=== PATIENT | female | born 1975 | race Caucasian/White ===

== ENCOUNTER 2016-12-21 02:51 | Outpatient (CLI) | payer OTHER ==
[2016-12-21 03:47] LABS: APPEARANCE,URINE CLEAR; BILIRUBIN,URINE NEGATIVE (NEGATIVE); GLUCOSE, URINE NEGATIVE (NEGATIVE); KETONES,URINE NEGATIVE (NEGATIVE); LEUKOCYTE ESTERASE,URINE NEGATIVE (NEGATIVE); NITRITE,URINE NEGATIVE (NEGATIVE); PROTEIN,URINE NEGATIVE (NEGATIVE); URINE SPECIFIC GRAVITY 1.011; UROBILINOGEN,URINE NEGATIVE mg/dL (<2.0)
[2016-12-21 04:00] LABS: URINE BARBITURATES SCREEN NEGATIVE; URINE METHADONE SCREEN NEGATIVE; URINE OPIATES LOW NEGATIVE; URINE PHENCYCLIDINE SCREEN NEGATIVE
== END 2016-12-21 04:17 | disposition home or self-care (01) ==
LOC: LC 02:51
PROVIDERS: ATTEND Obstetrics & Gynecology
DX: Z34.90 Encounter for supervision of normal pregnancy, unspecified, unspecified trimester (principal)
CPT/HCPCS: 80307; 81001

== ENCOUNTER 2017-01-02 20:29 | Inpatient (IN) | payer OTHER ==
[2017-01-02 21:07] LABS: APPEARANCE,URINE SLIGHTLY-CLOUDY; BILIRUBIN,URINE NEGATIVE (NEGATIVE); GLUCOSE, URINE NEGATIVE (NEGATIVE); KETONES,URINE TRACE mg/dL (NEGATIVE); LEUKOCYTE ESTERASE,URINE NEGATIVE (NEGATIVE); NITRITE,URINE NEGATIVE (NEGATIVE); PROTEIN,URINE NEGATIVE (NEGATIVE); URINE SPECIFIC GRAVITY 1.011; UROBILINOGEN,URINE NEGATIVE mg/dL (<2.0)
[2017-01-02 21:22] LABS: URINE BARBITURATES SCREEN NEGATIVE; URINE METHADONE SCREEN NEGATIVE; URINE OPIATES LOW NEGATIVE; URINE PHENCYCLIDINE SCREEN NEGATIVE
[2017-01-02] MEDS ORDERED: DICYCLOMINE HCL 20 MG TABLET PO ONE (21:31)
[2017-01-02] MEDS ORDERED: RINGERS SOLUTION,LACTATED 1,000 ML IV PRN (21:31)
[2017-01-02] MEDS ORDERED: PROMETHAZINE HCL INJ 25 MG/1 ML VIAL IV ONE (21:31)
[2017-01-02] MEDS ORDERED: PROMETHAZINE HCL INJ 25 MG/1 ML VIAL ONE (21:40)
[2017-01-02 21:52] LABS: ABSOLUTE BASOPHILS # (AUTO) 0.1 10^3/uL (0.0-0.2); ABSOLUTE EOSINOPHILS # (AUTO) 0.1 10^3/uL (0.0-0.6); ABSOLUTE LYMPHOCYTES (AUTO) 1.4 10^3/uL (0.5-4.7); BASOPHILS % (AUTO) 0.7 % (0-2); EOSINOPHILS % (AUTO) 0.8 % (0-6); HEMATOCRIT 35.2 % (36.0-47.0); HEMOGLOBIN 12.2 g/dL (12.0-15.5); HGB HCT DIFFERENCE 1.4; LYMPHOCYTES % (AUTO) 12.3 % (13-45); MEAN CORPUSCULAR HEMOGLOBIN 30.3 pg (27.0-33.4); MEAN CORPUSCULAR HGB CONC 34.5 g/dL (32.0-36.0); MEAN CORPUSCULAR VOLUME 88 fl (80-97); MONOCYTES % (AUTO) 8.4 % (3-13); RED BLOOD COUNT 4.01 10^6/uL (3.72-5.28); RED CELL DISTRIBUTION WIDTH 13.3 % (11.5-14.0); SEGMENTED NEUTROPHILS % (AUTO) 77.8 % (42-78); WHITE BLOOD COUNT 11.6 10^3/uL (4.0-10.5)
[2017-01-02] MEDS ORDERED: DICYCLOMINE HCL 20 MG TABLET ONE (21:55)
[2017-01-02 22:07] LABS: ALANINE AMINOTRANSFERASE 30 U/L (9-52); ALBUMIN 3.7 g/dL (3.5-5.0); ALKALINE PHOSPHATASE 96 U/L (38-126); AMYLASE 67 U/L (30-110); ANION GAP 11 (5-19); ASPARTATE AMINO TRANSFERASE 17 U/L (14-36); BILIRUBIN,DIRECT 0.3 mg/dL (0.0-0.4); BILIRUBIN,TOTAL 0.4 mg/dL (0.2-1.3); BLOOD UREA NITROGEN 9 mg/dL (7-20); CALCIUM 9.8 mg/dL (8.4-10.2); CARBON DIOXIDE 22 mmol/L (22-30); CHLORIDE 104 mmol/L (98-107); CREATININE RESULT 0.61 mg/dL (0.52-1.25); GLUCOSE 95 mg/dL (75-110); LIPASE 114.9 U/L (23-300); POTASSIUM 4.2 mmol/L (3.6-5.0); SODIUM 136.5 mmol/L (137-145); TOTAL PROTEIN 6.7 g/dL (6.3-8.2)
--- NOTE | 2017-01-02 22:50 | RADIOLOGY REPORT (SQ) ---
EXAM DESCRIPTION: U/S ABDOMEN LIMITED W/O DOP COMPLETED DATE/TIME: 01/02/2017 10:31 pm REASON FOR STUDY: RUQ ultrasound for RUQ pain to look at gallbladder COMPARISON: None. TECHNIQUE: Dynamic and static grayscale images acquired of the abdomen and recorded on PACS. Kristelo miguel selected color Doppler and spectral images recorded. LIMITATIONS: None. FINDINGS: PANCREAS: No masses. Visualized pancreatic duct normal caliber. LIVER: No masses. Echotexture normal. LIVER VASCULATURE: Normal directional flow of the main portal vein and hepatic veins. GALLBLADDER: No stones. Normal wall thickness. No pericholecystic fluid. ULTRASOUND-DETECTED SCRUGGS'S SIGN: Negative. INTRAHEPATIC DUCTS AND COMMON DUCT: CBD and intrahepatic ducts normal caliber. No filling defects. INFERIOR VENA CAVA: Normal flow. AORTA: No aneurysm. RIGHT KIDNEY: Normal size. Normal echogenicity. No solid or suspicious masses. No hydronephrosis. No calcifications. PERITONEAL AND RIGHT PLEURAL SPACE: No ascites or effusions. OTHER: No other significant findings. IMPRESSION: NORMAL RIGHT UPPER QUADRANT ULTRASOUND. TECHNICAL DOCUMENTATION: JOB ID: [id number] All Rights Reserved
[2017-01-02] MEDS ORDERED: FENTANYL CITRATE INJ/PF 100 MCG/2 ML AMPUL ONE (23:24)
[2017-01-02] MEDS ORDERED: ONDANSETRON HCL INJ/PF 4 MG/2 ML SDV ONE (23:25)
[2017-01-02] MEDS ORDERED: FENTANYL CITRATE INJ/PF 100 MCG/2 ML AMPUL IV ONE (23:30)
[2017-01-02] MEDS ORDERED: DEXTROSE 40% GEL 15 GM TUBE PO PRN ×2 (23:55)
[2017-01-02] MEDS ORDERED: GLUCAGON,HUMAN RECOMB 1 MG INJ SUBCUT PRN (23:55)
[2017-01-02] MEDS ORDERED: DEXTROSE 50%-WATER 25 GM/50 ML DISP.SYRIN IV PRN ×2 (23:55)
[2017-01-03] MEDS ORDERED: ONDANSETRON HCL INJ/PF 4 MG/2 ML SDV IV PRN (00:10)
[2017-01-03] MEDS ORDERED: CEFAZOLIN 2 GM/D5W RTU 2 GM/50 ML RTUPB IV ONE ×2 (00:15→00:50)
[2017-01-03] MEDS ORDERED: ZOLPIDEM TARTRATE 5 MG TABLET PO ONE (00:15)
[2017-01-03] MEDS ORDERED: ZOLPIDEM TARTRATE 5 MG TABLET ONE (00:50)
[2017-01-03] MEDS ORDERED: FENTANYL CITRATE INJ/PF 100 MCG/2 ML AMPUL IV ONE ×2 (01:04→06:15)
[2017-01-03] MEDS ORDERED: FENTANYL CITRATE INJ/PF 100 MCG/2 ML AMPUL ONE ×2 (01:09→06:07)
--- NOTE | 2017-01-03 01:13 | CONSULTATION REPORT E ---
Consultation Report NAME: JANET CORTEZ : 1975 AGE: 41Y DATE: 01/02/2017 LR200 A TO: RAHEEM MANTILLA M.D. FROM: JUAINTA DOSS M.D. Requesting Physician REASON FOR CONSULTATION: Patient with right upper quadrant pains radiating to the back. HISTORY OF PRESENT ILLNESS: This is a 41-year-old female, 29 weeks , complaining of right upper quadrant pains radiating to the back after somewhat fatty meal this evening. Pains started about 3 hours ago and have been persistent and severe. She had an ultrasound of the gallbladder which showed no stones and no evidence of cholecystitis. Her LFTs and amylase and lipase are all normal. No fever. She did have episodes of vomiting x3. She said she had the same episode about 2 weeks ago after a fatty meal, and the pains subsided after about an hour, as soon as she got into the hospital. She just had fentanyl, and the pains have decreased from a #5 to a #3. PAST HISTORY: She did have 3 pregnancies, 3 sections. SOCIAL HISTORY: Denies smoking or drinking or recreational drug use. REVIEW OF SYSTEMS: No ear or nasal problems. No shortness of breath or chest pains. GI as in HPI. : No dysuria. No history of seizures. No joint pains. No easy bruisability or gland enlargement. Rest of the systems are negative. FAMILY HISTORY: Noncontributory. PHYSICAL EXAMINATION: GENERAL: Well-developed, well-nourished, 41-year-old female, alert and oriented, complaining of right upper quadrant pains. VITAL SIGNS: Blood pressure 140 systolic. No fever. HEENT: Neck is supple. No thyromegaly. LUNGS: Clear. HEART: Regular sinus rhythm. ABDOMEN: Normal; 29-week uterine . Tender in the right upper quadrant with no rebound. No definite Carias sign, though patient just had fentanyl. EXTREMITIES: No edema. DIAGNOSTIC DATA: Ultrasound showed normal gallbladder, no stones, and no evidence of cholecystitis. White count is elevated to 11.6. All the rest of her LFTs, CMP, lipase, and amylase are all normal. IMPRESSION: 1. Biliary colic. 2. Possible starting cholecystitis, acalculous. 3. uterine 29 weeks. RECOMMENDATION: 1. Continue with the parenteral pain medication p.r.n. basis. 2. Start on IV Ancef 2 grams q. 8 hours. 3. Repeat CBC, CMP, lipase in a.m. 4. Keep n.p.o. and continue with hydration with the IV fluids. 5. Will reevaluate the patient in the a.m. DICTATING PHYSICIAN: RAHEEM MANTILLA M.D. [id number] PHY#: [id number] ID: [id number] JOB#: [id number] ACCT: [id number] cc:RAHEEM MANTILLA M.D. >
[2017-01-03] MEDS ORDERED: HYDROCODONE/ACETAMINOPHEN 5-325 MG TABLET ONE (03:48)
[2017-01-03] MEDS ORDERED: HYDROCODONE/ACETAMINOPHEN 5-325 MG TABLET PO ONE ×2 (04:00→05:00)
[2017-01-03] MEDS ORDERED: CEFAZOLIN 2 GM/D5W RTU 2 GM/50 ML RTUPB IV SCH (06:00)
[2017-01-03] MEDS ORDERED: PROMETHAZINE HCL INJ 25 MG/1 ML VIAL IV ONE (06:15)
[2017-01-03] MEDS: CEFAZOLIN 2 GM/D5W RTU 2 GM/50 ML RTUPB IV SCH ×2 (09:23→17:15)
[2017-01-03 10:06] LABS: ABSOLUTE BASOPHILS # (AUTO) 0.1 10^3/uL (0.0-0.2); ABSOLUTE LYMPHOCYTES (AUTO) 1.5 10^3/uL (0.5-4.7); ABSOLUTE MONOCYTES (AUTO) 0.9 10^3/uL (0.1-1.4); ABSOLUTE NEUT (AUTO) 10.3 10^3/uL (1.7-8.2); EOSINOPHILS % (AUTO) 0.2 % (0-6); HEMATOCRIT 33.2 % (36.0-47.0); HEMOGLOBIN 11.4 g/dL (12.0-15.5); LYMPHOCYTES % (AUTO) 11.6 % (13-45); MEAN CORPUSCULAR HEMOGLOBIN 30.1 pg (27.0-33.4); MEAN CORPUSCULAR HGB CONC 34.3 g/dL (32.0-36.0); MEAN CORPUSCULAR VOLUME 88 fl (80-97); MONOCYTES % (AUTO) 6.8 % (3-13); RED BLOOD COUNT 3.79 10^6/uL (3.72-5.28); RED CELL DISTRIBUTION WIDTH 13.2 % (11.5-14.0); SEGMENTED NEUTROPHILS % (AUTO) 80.4 % (42-78); WHITE BLOOD COUNT 12.8 10^3/uL (4.0-10.5)
[2017-01-03] MEDS: DICYCLOMINE HCL 20 MG TABLET PO PRN ×2 (10:08→15:59)
[2017-01-03 10:28] LABS: ALANINE AMINOTRANSFERASE 25 U/L (9-52); ALBUMIN 3.3 g/dL (3.5-5.0); ALKALINE PHOSPHATASE 84 U/L (38-126); AMYLASE 41 U/L (30-110); ANION GAP 10 (5-19); ASPARTATE AMINO TRANSFERASE 14 U/L (14-36); BILIRUBIN,DIRECT 0.3 mg/dL (0.0-0.4); BILIRUBIN,TOTAL 0.4 mg/dL (0.2-1.3); BLOOD UREA NITROGEN 5 mg/dL (7-20); CARBON DIOXIDE 21 mmol/L (22-30); CHLORIDE 105 mmol/L (98-107); CREATININE RESULT 0.59 mg/dL (0.52-1.25); GLUCOSE 94 mg/dL (75-110); LIPASE 66.3 U/L (23-300); POTASSIUM 4.1 mmol/L (3.6-5.0); SODIUM 136.1 mmol/L (137-145); TOTAL PROTEIN 5.9 g/dL (6.3-8.2)
[2017-01-03] MEDS: DEXTROSE 5%-LACTATED RINGERS 1,000 ML IV PRN (12:24)
[2017-01-03] MEDS: FENTANYL CITRATE INJ/PF 100 MCG/2 ML AMPUL IV PRN ×3 (13:10→21:58)
[2017-01-03] MEDS ORDERED: CALCIUM CARBONATE 500 MG TAB.CHEW PO PRN (22:24)
[2017-01-03] MEDS ORDERED: FAMOTIDINE 20 MG TABLET PO ONE (22:30)
[2017-01-04] MEDS: CEFAZOLIN 2 GM/D5W RTU 2 GM/50 ML RTUPB IV SCH ×3 (00:53→16:25)
[2017-01-04] MEDS: FENTANYL CITRATE INJ/PF 100 MCG/2 ML AMPUL IV PRN ×2 (03:50→08:21)
[2017-01-04 06:42] LABS: ABSOLUTE BASOPHILS # (AUTO) 0.1 10^3/uL (0.0-0.2); ABSOLUTE EOSINOPHILS # (AUTO) 0.1 10^3/uL (0.0-0.6); ABSOLUTE LYMPHOCYTES (AUTO) 1.4 10^3/uL (0.5-4.7); ABSOLUTE NEUT (AUTO) 8.3 10^3/uL (1.7-8.2); BASOPHILS % (AUTO) 0.5 % (0-2); EOSINOPHILS % (AUTO) 1.1 % (0-6); HEMATOCRIT 32.5 % (36.0-47.0); HEMOGLOBIN 11.3 g/dL (12.0-15.5); HGB HCT DIFFERENCE 1.4; LYMPHOCYTES % (AUTO) 12.8 % (13-45); MEAN CORPUSCULAR HEMOGLOBIN 30.6 pg (27.0-33.4); MEAN CORPUSCULAR HGB CONC 34.6 g/dL (32.0-36.0); MEAN CORPUSCULAR VOLUME 88 fl (80-97); RED BLOOD COUNT 3.68 10^6/uL (3.72-5.28); RED CELL DISTRIBUTION WIDTH 13.7 % (11.5-14.0); SEGMENTED NEUTROPHILS % (AUTO) 76.6 % (42-78); WHITE BLOOD COUNT 10.9 10^3/uL (4.0-10.5)
[2017-01-04] MEDS: DEXTROSE 5%-LACTATED RINGERS 1,000 ML IV PRN (06:48)
[2017-01-04] MEDS: DICYCLOMINE HCL 20 MG TABLET PO PRN ×2 (06:49→11:05)
[2017-01-04 07:01] LABS: ALANINE AMINOTRANSFERASE 22 U/L (9-52); ALBUMIN 3.2 g/dL (3.5-5.0); ALKALINE PHOSPHATASE 80 U/L (38-126); ANION GAP 9 (5-19); ASPARTATE AMINO TRANSFERASE 18 U/L (14-36); BILIRUBIN,DIRECT 0.3 mg/dL (0.0-0.4); BILIRUBIN,TOTAL 0.5 mg/dL (0.2-1.3); BLOOD UREA NITROGEN 4 mg/dL (7-20); CARBON DIOXIDE 24 mmol/L (22-30); CHLORIDE 105 mmol/L (98-107); CREATININE RESULT 0.65 mg/dL (0.52-1.25); GLUCOSE 96 mg/dL (75-110); LIPASE 84.5 U/L (23-300); POTASSIUM 4.2 mmol/L (3.6-5.0); SODIUM 137.7 mmol/L (137-145); TOTAL PROTEIN 5.9 g/dL (6.3-8.2)
--- NOTE | 2017-01-04 12:40 | PDOC PROGRESS REPORT ---
Subjective Subjective:: Patient states she is feeling better and her abdominal pain is less localized , less in the right upper quadrant. He did tolerate clear liquids. She denies nausea. Physical Exam Vital Signs: Temp Pulse Resp BP Pulse Ox 98 F 91 18 120/67 98 01/04/17 08:30 01/04/17 08:30 01/04/17 08:30 01/04/17 08:30 01/04/17 08:30 Intake & Output 01/03/17 01/04/17 01/05/17 06:59 06:59 06:59 Intake Total 300 Balance 300 Weight 112.7 kg General appearance: PRESENT: no acute distress GI/Abdominal exam: PRESENT: tenderness - Only mild abdominal tenderness peritoneal signs no rigidity. Results Laboratory Results: 01/04/17 06:25 01/04/17 06:25 01/04/17 01/04/17 06:25 06:25 WBC 10.9 H RBC 3.68 L Hgb 11.3 L Hct 32.5 L MCV 88 MCH 30.6 MCHC 34.6 RDW 13.7 Plt Count 225 Seg Neutrophils % 76.6 Lymphocytes % 12.8 L Monocytes % 9.0 Eosinophils % 1.1 Basophils % 0.5 Absolute Neutrophils 8.3 H Absolute Lymphocytes 1.4 Absolute Monocytes 1.0 Absolute Eosinophils 0.1 Absolute Basophils 0.1 Sodium 137.7 Potassium 4.2 Chloride 105 Carbon Dioxide 24 Anion Gap 9 BUN 4 L Creatinine 0.65 Est GFR ( Amer) > 60 Est GFR (Non-Af Amer) > 60 Glucose 96 Calcium 9.0 Total Bilirubin 0.5 AST 18 ALT 22 Alkaline Phosphatase 80 Total Protein 5.9 L Albumin 3.2 L Lipase 84.5 Impressions: Abdomen Ultrasound 01/02/17 21:30 IMPRESSION: NORMAL RIGHT UPPER QUADRANT ULTRASOUND. Assessment & Plan - Diagnosis (1) Abdominal pain of unknown etiology Is this a current diagnosis for this admission?: Yes Plan: Since abdominal pain clinically improved. She is tolerating a diet. Her laboratory profile shows normalization. Clinically the patient does not have evidence of an acute intra-abdominal process. We will sign off at this time. Please reconsult surgery if clinical condition deteriorates.
--- NOTE | 2017-01-04 14:04 | PROGRESS NOTE E ---
Progress Note NAME: JANET CORTEZ : 1975 AGE: 41Y DATE: 01/03/2017 ROOM: 228 SUBJECTIVE: The patient is still complaining of right upper quadrant pain but not as bad as last night. I saw her early this morning and her pain is about 2.5 to 3. Denies any nausea or vomiting. She finally asked for pain medication at 4 o'clock today. She said the pains are still 3 with a pain medication of fentanyl, but this was only given about half an hour ago. OBJECTIVE: VITAL SIGNS: Temperature 98.6, heart rate is 62 per minute, blood pressure 141/66. ABDOMEN: Soft and shredder tender peat in the right upper quadrant and towards the right side. BACK: Her back pain seems to have subsided and there is no more tenderness. LABORATORY DATA: Showed white count was 12.8 from 11.6 last night. Her LFTs remain normal. Her lipase and amylase remain normal. PLAN: I agreed to start her on clear liquids for now. Continue with antibiotic therapy for possible starting acalculous cholecystitis. Will follow her in the morning and repeat her blood work with CBC and CMP and lipase. DICTATING PHYSICIAN: RAEHEM MANTILLA M.D. [id number] PHY#: [id number] ID: [id number] JOB#: [id number] ACCT: [id number] cc: >
--- NOTE | 2017-01-04 19:23 | PDOC PROGRESS REPORT ---
Subjective Progress Note for:: 01/04/17 Subjective:: pt's pain has improved, tolerating regular diet, now no IV pain meds in approx 12 hours Physical Exam - Physical Exam Vital Signs: Temp Pulse Resp BP Pulse Ox 98.3 F 78 18 139/66 H 100 01/04/17 15:20 01/04/17 15:20 01/04/17 15:20 01/04/17 15:20 01/04/17 15:20 Intake & Output 01/03/17 01/04/17 01/05/17 06:59 06:59 06:59 Intake Total 300 Balance 300 Weight 112.7 kg General appearance: PRESENT: no acute distress, well-developed, well-nourished Head exam: PRESENT: atraumatic, normocephalic Respiratory exam: PRESENT: clear to auscultation bao, symmetrical, unlabored Cardiovascular exam: PRESENT: RRR. ABSENT: diastolic murmur, rubs, systolic murmur Pulses: PRESENT: normal dorsalis pedis pul, +2 pedal pulses bilateral GI/Abdominal exam: PRESENT: normal bowel sounds, soft. ABSENT: distended, guarding, mass, organolmegaly, rebound, tenderness Rectal exam: PRESENT: deferred Extremities exam: ABSENT: calf tenderness, clubbing, joint swelling, tenderness , +1 edema Musculoskeletal exam: PRESENT: ambulatory Neurological exam: PRESENT: alert, awake, oriented to person, oriented to place , oriented to time, oriented to situation, CN II-XII grossly intact. ABSENT: motor sensory deficit Psychiatric exam: PRESENT: appropriate affect, normal mood. ABSENT: homicidal ideation, suicidal ideation Skin exam: PRESENT: dry, intact, warm. ABSENT: cyanosis, rash Result Laboratory Results: 01/04/17 06:25 01/04/17 06:25 01/04/17 01/04/17 06:25 06:25 WBC 10.9 H RBC 3.68 L Hgb 11.3 L Hct 32.5 L MCV 88 MCH 30.6 MCHC 34.6 RDW 13.7 Plt Count 225 Seg Neutrophils % 76.6 Lymphocytes % 12.8 L Monocytes % 9.0 Eosinophils % 1.1 Basophils % 0.5 Absolute Neutrophils 8.3 H Absolute Lymphocytes 1.4 Absolute Monocytes 1.0 Absolute Eosinophils 0.1 Absolute Basophils 0.1 Sodium 137.7 Potassium 4.2 Chloride 105 Carbon Dioxide 24 Anion Gap 9 BUN 4 L Creatinine 0.65 Est GFR ( Amer) > 60 Est GFR (Non-Af Amer) > 60 Glucose 96 Calcium 9.0 Total Bilirubin 0.5 AST 18 ALT 22 Alkaline Phosphatase 80 Total Protein 5.9 L Albumin 3.2 L Lipase 84.5 Impressions: Abdomen Ultrasound 01/02/17 21:30 IMPRESSION: NORMAL RIGHT UPPER QUADRANT ULTRASOUND. Status: Imported from PACS Assessment & Plan - Diagnosis (1) Qualifiers: Weeks of gestation: 29 weeks Qualified Code(s): Z3A.29 - 29 weeks gestation of Is this a current diagnosis for this admission?: Yes Plan: f/u in [facility] this week. COntinue PNV. Colace and bowel regimen reviewed. (2) Biliary colic symptom Is this a current diagnosis for this admission?: Yes Plan: Pt assesed earlier in am and due to need for pain meds requirement was changed to inpatient today and continued to monitor during day for pain meds requirement and toleration of po intake. Monitored throughout the day and symptoms improved and patient doing well. Ancef 2 g Q8 recommended by Dr. Parada. Pt has now completed 24 hrs and has improved pain. Full diet today tolerated well. No IV pain meds since 0800 and no po pain meds requested. Doing well. Dr. Burgos signed off. Now since not needing pain meds and tolerated po intake meets criteria for discharge. - Time Time Spent with patient: Less than 15 minutes Critical Time spent with patient: Less than 15 minutes Medications reviewed and adjusted accordingly: Yes Anticipated discharge: Home Within: within 24 hours - Inpatient Certification Based on my medical assessment, after consideration of the patient's comorbidities, presenting symptoms, or acuity I expect that the services needed warrant INPATIENT care.: No I certify that my determination is in accordance with my understanding of Medicare's requirements for reasonable and necessary INPATIENT services [42 CFR 412.3e].: No - Plan Summary Plan Summary: Discharge to home
--- NOTE | 2017-01-04 19:32 | PDOC DISCHARGE SUMMARY ---
General - Admit/Disc Date/PCP Admission Date/Primary Care Provider: 01/04/17 13:54 RAINE MANZANO, Discharge Date: 01/04/17 - Discharge Diagnosis (1) Is this a current diagnosis for this admission?: Yes Summary: 29wks and doing well. F/u in the office this week. (2) Biliary colic symptom Is this a current diagnosis for this admission?: Yes Summary: Symptoms improved. Will continue Bentyl as started by Dr. Webb Doing well. DIscharge to home. GI signed off. - Additional Information Resuscitation Status: Full Code Home Medications: Prenat Vit Comb.10/Iron/FA/Dha [Pnv-Ob with Dha Combo Pack] 1 each PO DAILY Calcium Carbonate [Tums Chewable 500 mg Tab.chew] 500 mg PO Q4HP PRN tab.chew 01/04/17 Dicyclomine HCl [Bentyl 20 mg Tablet] 20 mg PO QIDP PRN 30 Days #120 tablet History of Present Illness Patient complains of: RUQ pain. History of Present Illness: JANET CORTEZ is a 41 year old female admitted on Sat evening for observation due to RUQ pain. Admitted for r/o cholelithiasis. RUQ US done and normal. GI consulted and rec IV abx and NPO. Pt improved over 24 hours and po diet started and IV pain meds discontinued. pt symptoms imrpved and pt met criteria for discharge. Hospital Course Hospital Course: 41 year old female admitted on Sat evening for observation due to RUQ pain. Admitted for r/o cholelithiasis. RUQ US done and normal. GI consulted and rec IV abx and NPO. Pt improved over 24 hours and po diet started and IV pain meds discontinued. pt symptoms imrpved and pt met criteria for discharge Physical Exam - Physical Exam Vital Signs: Temp Pulse Resp BP Pulse Ox 98.3 F 78 18 139/66 H 100 01/04/17 15:20 01/04/17 15:20 01/04/17 15:20 01/04/17 15:20 01/04/17 15:20 Intake & Output 01/03/17 01/04/17 01/05/17 06:59 06:59 06:59 Intake Total 300 Balance 300 Weight 112.7 kg General appearance: PRESENT: no acute distress, well-developed, well-nourished Head exam: PRESENT: atraumatic, normocephalic Cardiovascular exam: PRESENT: RRR. ABSENT: diastolic murmur, rubs, systolic murmur Pulses: PRESENT: normal dorsalis pedis pul, +2 pedal pulses bilateral Vascular exam: PRESENT: normal capillary refill GI/Abdominal exam: PRESENT: normal bowel sounds, soft. ABSENT: distended, guarding, mass, organolmegaly, rebound, tenderness Rectal exam: PRESENT: deferred Extremities exam: PRESENT: full ROM. ABSENT: calf tenderness, clubbing, pedal edema Neurological exam: PRESENT: alert, awake, oriented to person, oriented to place , oriented to time, oriented to situation, CN II-XII grossly intact. ABSENT: motor sensory deficit Skin exam: PRESENT: dry, intact, warm. ABSENT: cyanosis, rash Result Laboratory Results: 01/04/17 06:25 01/04/17 06:25 01/04/17 01/04/17 06:25 06:25 WBC 10.9 H RBC 3.68 L Hgb 11.3 L Hct 32.5 L MCV 88 MCH 30.6 MCHC 34.6 RDW 13.7 Plt Count 225 Seg Neutrophils % 76.6 Lymphocytes % 12.8 L Monocytes % 9.0 Eosinophils % 1.1 Basophils % 0.5 Absolute Neutrophils 8.3 H Absolute Lymphocytes 1.4 Absolute Monocytes 1.0 Absolute Eosinophils 0.1 Absolute Basophils 0.1 Sodium 137.7 Potassium 4.2 Chloride 105 Carbon Dioxide 24 Anion Gap 9 BUN 4 L Creatinine 0.65 Est GFR ( Amer) > 60 Est GFR (Non-Af Amer) > 60 Glucose 96 Calcium 9.0 Total Bilirubin 0.5 AST 18 ALT 22 Alkaline Phosphatase 80 Total Protein 5.9 L Albumin 3.2 L Lipase 84.5 Impressions: Abdomen Ultrasound 01/02/17 21:30 IMPRESSION: NORMAL RIGHT UPPER QUADRANT ULTRASOUND. Status: Imported from PACS Plan Discharge Plan: discharge to home Time Spent: Less than 30 Minutes
[2017-01-04 19:35] VITALS: BP 139/66
== END 2017-01-04 19:54 | disposition home or self-care (01) | DRG 781 ==
LOC: LC 20:29 → LR 23:25 → 2S 01-03 01:11 → OBSVTOIN 01-04 13:54
PROVIDERS: ADMIT Specialist; ATTEND Specialist
DX: O26.613 Liver and biliary tract disorders in pregnancy, third trimester (principal); K83.8 Other specified diseases of biliary tract; R10.11 Right upper quadrant pain; Z3A.29 29 weeks gestation of pregnancy; O09.523 Supervision of elderly multigravida, third trimester
CPT/HCPCS: 36415; 76705; 80053; 80307; 81001; 82150; 83690; 85025; 94760; G0378; G0379; J0690; J2405; J2550; J3010; J3490

== ENCOUNTER 2017-01-05 05:54 | Outpatient (CLI) | payer OTHER ==
[2017-01-05 06:51] LABS: APPEARANCE,URINE SLIGHTLY-CLOUDY; BILIRUBIN,URINE NEGATIVE (NEGATIVE); GLUCOSE, URINE NEGATIVE (NEGATIVE); KETONES,URINE 80 mg/dL (NEGATIVE); LEUKOCYTE ESTERASE,URINE NEGATIVE (NEGATIVE); NITRITE,URINE NEGATIVE (NEGATIVE); PROTEIN,URINE NEGATIVE (NEGATIVE); URINE SPECIFIC GRAVITY 1.014; UROBILINOGEN,URINE NEGATIVE mg/dL (<2.0)
[2017-01-05 06:56] LABS: URINE BARBITURATES SCREEN NEGATIVE; URINE METHADONE SCREEN NEGATIVE; URINE OPIATES LOW NEGATIVE; URINE PHENCYCLIDINE SCREEN NEGATIVE
[2017-01-05 07:54] LABS: ABSOLUTE BASOPHILS # (AUTO) 0.1 10^3/uL (0.0-0.2); ABSOLUTE EOSINOPHILS # (AUTO) 0.3 10^3/uL (0.0-0.6); ABSOLUTE LYMPHOCYTES (AUTO) 1.4 10^3/uL (0.5-4.7); ABSOLUTE MONOCYTES (AUTO) 1.2 10^3/uL (0.1-1.4); ABSOLUTE NEUT (AUTO) 9.5 10^3/uL (1.7-8.2); BASOPHILS % (AUTO) 0.6 % (0-2); EOSINOPHILS % (AUTO) 2.3 % (0-6); HEMOGLOBIN 11.4 g/dL (12.0-15.5); HGB HCT DIFFERENCE 1.2; LYMPHOCYTES % (AUTO) 10.9 % (13-45); MEAN CORPUSCULAR HEMOGLOBIN 30.4 pg (27.0-33.4); MEAN CORPUSCULAR HGB CONC 34.6 g/dL (32.0-36.0); MEAN CORPUSCULAR VOLUME 88 fl (80-97); MONOCYTES % (AUTO) 9.8 % (3-13); RED BLOOD COUNT 3.76 10^6/uL (3.72-5.28); RED CELL DISTRIBUTION WIDTH 13.2 % (11.5-14.0); SEGMENTED NEUTROPHILS % (AUTO) 76.4 % (42-78); WHITE BLOOD COUNT 12.4 10^3/uL (4.0-10.5)
[2017-01-05 08:05] LABS: ALANINE AMINOTRANSFERASE 26 U/L (9-52); ALBUMIN 3.3 g/dL (3.5-5.0); ALKALINE PHOSPHATASE 90 U/L (38-126); AMYLASE 31 U/L (30-110); ANION GAP 11 (5-19); ASPARTATE AMINO TRANSFERASE 29 U/L (14-36); BILIRUBIN,DIRECT 0.4 mg/dL (0.0-0.4); BILIRUBIN,TOTAL 0.7 mg/dL (0.2-1.3); BLOOD UREA NITROGEN 5 mg/dL (7-20); CALCIUM 9.2 mg/dL (8.4-10.2); CARBON DIOXIDE 20 mmol/L (22-30); CHLORIDE 106 mmol/L (98-107); CREATININE RESULT 0.54 mg/dL (0.52-1.25); GLUCOSE 74 mg/dL (75-110); LIPASE 51.1 U/L (23-300); POTASSIUM 3.9 mmol/L (3.6-5.0); TOTAL PROTEIN 6.2 g/dL (6.3-8.2)
--- NOTE | 2017-01-05 08:30 | RADIOLOGY REPORT (SQ) ---
EXAM DESCRIPTION: U/S OB LIMITED COMPLETED DATE/TIME: 01/05/2017 8:21 am REASON FOR STUDY: contractions at 30 weeks;cervical length COMPARISON: None. TECHNIQUE: Limited transvaginal and transabdominal grayscale ultrasound for evaluation of specific r equested obstetrical parameters. LIMITATIONS: None. FINDINGS: CERVICAL LENGTH: 5.4 cm. Closed. Somewhat heterogenous appearance of the cervix. HAIM: 15.4 cm. FHR: 132 beats per minute. PRESENTATION: Cephalic. PLACENTA: Anterior. OTHER: No other significant findings. IMPRESSION: LIMITED OBSTETRICAL ULTRASOUND WITH MEASURED PARAMETERS DELINEATED ABOVE. Trimester of : Third trimester - 28 weeks to delivery. TECHNICAL DOCUMENTATION: JOB ID: [id number] [employer]- All Rights Reserved
[2017-01-05] MEDS ORDERED: FLUCONAZOLE 100 MG TABLET ONE ×2 (09:34→09:36)
== END 2017-01-05 09:40 | disposition home or self-care (01) ==
LOC: LC 05:54
PROVIDERS: ATTEND Student in an Organized Health Care Education/Training Program
PROC: 4A1HXCZ Monitoring of Products of Conception, Cardiac Rate, External Approach (ICD-10-PCS; principal; 2017-01-05)
DX: O26.893 Other specified pregnancy related conditions, third trimester (principal); R10.2 Pelvic and perineal pain; Z3A.30 30 weeks gestation of pregnancy
CPT/HCPCS: 36415; 76815; 80053; 80307; 81001; 82150; 82731; 83690; 85025; 87086

== ENCOUNTER 2017-01-06 11:01 | Inpatient (IN) | payer OTHER ==
--- NOTE | 2017-01-06 11:17 | ER Document Report ---
ED Medical Screen (RME) - General Chief Complaint: Abdominal Pain Stated Complaint: ABDOMINAL PAIN Time Seen by Provider: 01/06/17 11:15 Notes: Patient is referred from [facility] office. Patient has persistent right upper quadrant pain. This is patient's third visit for this pain. She is currently 30 weeks . [facility] provider has suggested that an MRI be obtained to rule out intra-abdominal pathology. TRAVEL OUTSIDE OF THE [place] IN LAST 30 DAYS: No - Related Data Allergies/Adverse Reactions: Penicillins Allergy (Severe, Verified 01/06/17 11:06) Hives hydromorphone HCl [From Dilaudid] Adverse Reaction (Mild, Verified 01/06/17 11: 06) nausea, sweaty and low 02 sats Opioids - Morphine Analogues Adverse Reaction (Mild, Verified 01/06/17 11:06) nausea, cold sweats, low 02 sats Past Medical History - Social History Chew tobacco use (# tins/day): No Frequency of alcohol use: None Drug Abuse: None - Past Medical History Cardiac Medical History: Pulmonary Medical History: Neurological Medical History: Reports: Hx Migraine Renal/ Medical History: Denies: Hx Kidney Stones, Hx Ovarian Cysts, Hx Peritoneal Dialysis, Hx Pelvic Inflammatory Disease Malignancy Medical History: Denies: Hx Breast Cancer, Hx Cervical Cancer, Hx Ovarian Cancer GI Medical History: Denies: Hx Gastroesophageal Reflux Disease, Hx Hiatal Hernia , Hx Ulcer Musculoskeltal Medical History: Infectious Medical History: Denies: Hx HIV Past Surgical History: Reports: Hx Section - x2 - Immunizations Hx Diphtheria, Pertussis, Tetanus Vaccination: Yes Physical Exam - Vital signs Vitals: Temp Pulse Resp BP Pulse Ox 98.5 F 99 20 118/73 98 01/06/17 11:05 01/06/17 11:05 01/06/17 11:05 01/06/17 11:05 01/06/17 11:05 Course - Vital Signs Vital signs: Temp Pulse Resp BP Pulse Ox 98.5 F 99 20 118/73 98 01/06/17 11:05 01/06/17 11:05 01/06/17 11:05 01/06/17 11:05 01/06/17 11:05
[2017-01-06 11:52] LABS: ABSOLUTE EOSINOPHILS # (AUTO) 0.3 10^3/uL (0.0-0.6); ABSOLUTE MONOCYTES (AUTO) 0.9 10^3/uL (0.1-1.4); ABSOLUTE NEUT (AUTO) 8.2 10^3/uL (1.7-8.2); BASOPHILS % (AUTO) 0.3 % (0-2); EOSINOPHILS % (AUTO) 3.3 % (0-6); HEMATOCRIT 35.4 % (36.0-47.0); HEMOGLOBIN 12.2 g/dL (12.0-15.5); HGB HCT DIFFERENCE 1.2; LYMPHOCYTES % (AUTO) 9.4 % (13-45); MEAN CORPUSCULAR HEMOGLOBIN 30.4 pg (27.0-33.4); MEAN CORPUSCULAR HGB CONC 34.4 g/dL (32.0-36.0); MEAN CORPUSCULAR VOLUME 88 fl (80-97); RED BLOOD COUNT 4.01 10^6/uL (3.72-5.28); RED CELL DISTRIBUTION WIDTH 13.5 % (11.5-14.0); WHITE BLOOD COUNT 10.6 10^3/uL (4.0-10.5)
[2017-01-06 12:02] LABS: APPEARANCE,URINE SLIGHTLY-CLOUDY; BILIRUBIN,URINE NEGATIVE (NEGATIVE); GLUCOSE, URINE NEGATIVE (NEGATIVE); KETONES,URINE TRACE mg/dL (NEGATIVE); LEUKOCYTE ESTERASE,URINE NEGATIVE (NEGATIVE); NITRITE,URINE NEGATIVE (NEGATIVE); PROTEIN,URINE NEGATIVE (NEGATIVE); URINE SPECIFIC GRAVITY 1.026
[2017-01-06] MEDS ORDERED: NORMAL SALINE 1000 ML 1,000 ML IV ONE (12:03)
[2017-01-06 12:19] LABS: ALANINE AMINOTRANSFERASE 33 U/L (9-52); ALBUMIN 3.8 g/dL (3.5-5.0); ALKALINE PHOSPHATASE 104 U/L (38-126); ANION GAP 11 (5-19); ASPARTATE AMINO TRANSFERASE 26 U/L (14-36); BILIRUBIN,DIRECT 0.3 mg/dL (0.0-0.4); BILIRUBIN,TOTAL 0.6 mg/dL (0.2-1.3); BLOOD UREA NITROGEN 8 mg/dL (7-20); CALCIUM 9.4 mg/dL (8.4-10.2); CARBON DIOXIDE 25 mmol/L (22-30); CHLORIDE 103 mmol/L (98-107); CREATININE RESULT 0.64 mg/dL (0.52-1.25); GLUCOSE 71 mg/dL (75-110); SODIUM 138.6 mmol/L (137-145); TOTAL PROTEIN 6.9 g/dL (6.3-8.2)
--- NOTE | 2017-01-06 13:00 | ER Document Report ---
ED General - General Chief Complaint: Abdominal Pain Stated Complaint: ABDOMINAL PAIN Time Seen by Provider: 01/06/17 11:15 Mode of Arrival: Ambulatory Information source: Patient Notes: 41-year-old female 30 weeks presents with approximately 1 month duration of abdominal pain. Patient denies any fevers or chills admits to nausea vomiting patient has been seen multiple times for similar complaints but was sent home. [facility] called requesting patient have further imaging TRAVEL OUTSIDE OF THE [place] IN LAST 30 DAYS: No - HPI Onset: Other Onset/Duration: Persistent Quality of pain: Achy Severity: Mild Pain Level: 1 Associated symptoms: Nausea, Vomiting, Other Exacerbated by: Food Relieved by: Denies Similar symptoms previously: Yes Recently seen / treated by doctor: Yes - Related Data Allergies/Adverse Reactions: Penicillins Allergy (Severe, Verified 01/06/17 11:27) Hives hydromorphone HCl [From Dilaudid] Adverse Reaction (Mild, Verified 01/06/17 11: 27) nausea, sweaty and low 02 sats Opioids - Morphine Analogues Adverse Reaction (Mild, Verified 01/06/17 11:27) nausea, cold sweats, low 02 sats Home Medications: Current Home Medications Dicyclomine HCl [Bentyl 20 mg Tablet] 20 mg PO QID 01/06/17 [History] Vit 40/Iron/Folic/Dha [ Multi + Dha Softgel] 1 each PO DAILY [History] Past Medical History - Social History Smoking Status: Never Smoker Cigarette use (# per day): No Chew tobacco use (# tins/day): No Smoking Education Provided: No Frequency of alcohol use: None Drug Abuse: None Family History: Reviewed & Not Pertinent - Past Medical History Cardiac Medical History: Pulmonary Medical History: Neurological Medical History: Reports: Hx Migraine Renal/ Medical History: Denies: Hx Kidney Stones, Hx Ovarian Cysts, Hx Peritoneal Dialysis, Hx Pelvic Inflammatory Disease Malignancy Medical History: Denies: Hx Breast Cancer, Hx Cervical Cancer, Hx Ovarian Cancer GI Medical History: Denies: Hx Gastroesophageal Reflux Disease, Hx Hiatal Hernia , Hx Ulcer Musculoskeltal Medical History: Infectious Medical History: Denies: Hx HIV Past Surgical History: Reports: Hx Section - x2 - Immunizations Hx Diphtheria, Pertussis, Tetanus Vaccination: Yes Review of Systems - Review of Systems Notes: REVIEW OF SYSTEMS: CONSTITUTIONAL : Denies fever, chills, or sweats. Denies recent illness. EENT: Denies eye, ear, throat, or mouth pain or symptoms. Denies nasal or sinus congestion or discharge. Denies throat, tongue, or mouth swelling or difficulty swallowing. CARDIOVASCULAR: Denies chest pain. Denies palpitations or racing or irregular heart beat. Denies ankle edema. RESPIRATORY: Denies cough, cold, or chest congestion. Denies shortness of breath, difficulty breathing, or wheezing. GASTROINTESTINAL: Right upper quadrant abdominal pain GENITOURINARY: Denies difficulty urinating, painful urination, burning, frequency, blood in urine, or discharge. FEMALE GENITOURINARY: Denies vaginal bleeding, heavy or abnormal periods, irregular periods. Denies vaginal discharge or odor. MUSCULOSKELETAL: Denies back or neck pain or stiffness. Denies joint pain or swelling. SKIN: Denies rash, lesions or sores. HEMATOLOGIC : Denies easy bruising or bleeding. LYMPHATIC: Denies swollen, enlarged glands. NEUROLOGICAL: Denies confusion or altered mental status. Denies passing out or loss of consciousness. Denies dizziness or lightheadedness. Denies headache. Denies weakness or paralysis or loss of use of either side. Denies problems with gait or speech. Denies sensory loss, numbness, or tingling. Denies seizures. PSYCHIATRIC: Denies anxiety or stress. Denies depression, suicidal ideation, or homicidal ideation. ALL OTHER SYSTEMS REVIEWED AND NEGATIVE. PHYSICAL EXAMINATION: GENERAL: Well-appearing, well-nourished and in no acute distress. HEAD: Atraumatic, normocephalic. EYES: Pupils equal round and reactive to light, extraocular movements intact, conjunctiva are normal. ENT: Nares patent, oropharynx clear without exudates. Moist mucous membranes. NECK: Normal range of motion, supple without lymphadenopathy LUNGS: Breath sounds clear to auscultation bilaterally and equal. No wheezes rales or rhonchi. HEART: Regular rate and rhythm without murmurs ABDOMEN: Gravid abdomen tender in the right upper quadrant Female : deferred Musculoskeletal: Normal range of motion, no pitting or edema. No cyanosis. NEUROLOGICAL: Cranial nerves grossly intact. Normal speech, normal gait. Normal sensory, motor exams PSYCH: Normal mood, normal affect. SKIN: Warm, Dry, normal turgor, no rashes or lesions noted. Dictation was performed using [employer] voice recognition software Physical Exam - Vital signs Vitals: Temp Pulse Resp BP Pulse Ox 98.5 F 99 20 118/73 98 01/06/17 11:05 01/06/17 11:05 01/06/17 11:05 01/06/17 11:05 01/06/17 11:05 Course - Re-evaluation Re-evalutation: 01/06/17 12:59 Dr Elza gregory is a cute cholecystitis Dr Archer does not wish to do surgery , requests IR involvement Dr Ashley will call IR 01/06/17 15:41 Patient was admitted to [facility] drain has been placed patient has been ordered antibiotics and fluids and will be watched - Vital Signs Vital signs: Temp Pulse Resp BP Pulse Ox 99.6 F 85 12 123/67 98 01/06/17 13:43 01/06/17 13:43 01/06/17 13:43 01/06/17 13:43 01/06/17 13:43 - Laboratory Result Diagrams: 01/06/17 11:32 01/06/17 11:32 Laboratory results interpreted by me: 01/06/17 01/06/17 01/06/17 11:32 11:32 11:32 WBC 10.6 H Hct 35.4 L Lymphocytes % 9.4 L Glucose 71 L Urine Ketones TRACE H Urine Urobilinogen 2.0 H Urine Ascorbic Acid 20 H - Diagnostic Test Radiology reviewed: Image reviewed, Reports reviewed - acute cholecystitis Discharge - Discharge Clinical Impression: Cholecystitis Qualifiers: Weeks of gestation: 30 weeks Qualified Code(s): Z3A.30 - 30 weeks gestation of Condition: Stable Disposition: ADMITTED INPATIENT Admitting Provider: [facility] Admitted: Labor and Delivery
[2017-01-06] MEDS ORDERED: CEFAZOLIN 2 GM/D5W RTU 2 GM/50 ML RTUPB IV ONE (13:55)
--- NOTE | 2017-01-06 14:06 | RADIOLOGY REPORT (SQ) ---
EXAM DESCRIPTION: MRI ABDOMEN WITHOUT COMPLETED DATE/TIME: 01/06/2017 1:08 pm REASON FOR STUDY: ruq pain COMPARISON: Right upper quadrant ultrasound 01/02/2017 Ob ultrasound 01/05/2017 TECHNIQUE: Noncontrast MRI pelvis, patient with right-sided abdominal pain evaluate gallbla dder and appendix. Carinal T2, stir, CS static and T1 weighted images, axial Fiesta and T2 weighted images. LIMITATIONS: None. FINDINGS: 3rd trimester with fetus in the cephalic orientation, fundal placenta. Prominen t lower uterine segment fibroid all 14 x 11 cm in size. The ileocecal valve is identified on coronal image 18. Appendix is identified on coronal images 18-2 1. No periappendiceal fluid. No dilatation of the appendiceal lumen. In the right upper quadrant, the gallbladder is distended, 13 cm in length with mild gallbladder wall thickening. There is a stone at the gallbladder neck, 1 cm in size. Liver, spleen, pancreas, adrenal glands, kidneys unremarkable. This report was called to Dr. Lomeli and Dr. Parada at the time of scanning. IMPRESSION: Normal appendix Distended gallbladder with 1 cm stone in the gallbladder neck. Findings are worrisome for acute chol ecystitis Prominent fibroid along the leftward lower uterine segment, 14 x 11 cm in size. TECHNICAL DOCUMENTATION: JOB ID: [id number] [employer]- All Rights Reserved
[2017-01-06] MEDS ORDERED: FENTANYL CITRATE INJ/PF 100 MCG/2 ML AMPUL ONE (15:03)
[2017-01-06] MEDS ORDERED: MIDAZOLAM 2 MG/2 ML INJ ONE (15:03)
--- NOTE | 2017-01-06 16:03 | RADIOLOGY REPORT (SQ) ---
EXAM DESCRIPTION: CT GUIDED PERCUT DRAIN W/CATH COMPLETED DATE/TIME: 01/06/2017 3:32 pm REASON FOR STUDY: DISTENDED GALLBLADDER COMPARISON: None. TECHNIQUE: CT guided cholecystostomy tube with IV pain control. CT Fluoroscopy Time: 6.[address] scanners at this facility use dose modulation, iterative reconstruction, and/or weight based d osing when appropriate to reduce radiation dose to as low as reasonably achievable (ALARA). [facility]: Dose Right [facility]: CareDose [facility]: Dose Right [facility]: Teradose 4D [facility]: HomeLight RADIATION DOSE: Up-to-date CT equipment and radiation dose reduction techniques were employed. CTDI vol: 4.0 - 20.1 mGy. DLP: 384 mGy-cm.mGy. FINDINGS: The procedure was discussed with the patient and the patient agreed to the procedure. Prio r to the procedure, a time out was performed to verify the patient's identity and planned procedure. The need for cholecystostomy tube, risks and benefits were discussed with the patient as well as mayte Parada from surgery and Dr. Carlson from OB. Dr. Carlson from OB was present during the proce dure. IV pain control was administered and physician direction by the registered nurse using 100 micrograms of fentanyl. Physiologic monitoring was provided before, during, and after sedation. The total pain control time was 30 minutes. Documentation face to face time, the performing proceduralist, spent monitoring the patient: 20 rui shayy. Very limited Noncontrast CT scanning was performed to localize the percutaneous site [facility]. After sterile skin prep and local lidocaine for skin and deep tissue anesthesia, an 18 gauge needle w as used from posterior approach to access the gallbladder through the right lobe liver. An 038 guide wire was placed through the needle, with the tip coiled in the gallbladder. At this point, the tract was dilated with a 7 Azeri dilator, and an 8 Azeri locking pigtail was placed, with the pigtail lo op in the gallbladder. Pigtail catheter was locked, and secured to the patient's right flank with ny palomo sutures, and placed to an accordion drainage bag. A sample of the bile was sent for culture. Th ere were no immediate complications. Postprocedure, Dr. Carlson obtained a normal heart rate with a Doppler probe. IMPRESSION: CT GUIDED CHOLECYSTOSTOMY TUBE PLACEMENT PERFORMED WITHOUT IMMEDIATE COMPLICATION. COMMENT: Quality ID [id number]: Final reports for procedures using fluoroscopy that document radiation exp osure indices, or exposure time and number of fluorographic images (if radiation exposure indices are not available) Patient medication list reviewed: Yes- Quality ID# [id number]:Eligible professional attests to documenting i n the medical record they obtained, updated, or reviewed the patient's current medications.. TECHNICAL DOCUMENTATION: JOB ID: [id number] Quality ID# [id number]: Final reports with documentation of one or more dose reduction techniques (e.g., Aut omated exposure control, adjustment of the mA and/or kV according to patient size, use of iterative r econstruction technique) 2010 [employer]- All Rights Reserved
[2017-01-06] MEDS ORDERED: OXYCODONE-ACETAMINOPHEN 5-325 MG TABLET ONE (16:49)
[2017-01-06] MEDS ORDERED: OXYCODONE-ACETAMINOPHEN 5-325 MG TABLET PO PRN ×3 (20:03→20:08)
[2017-01-06] MEDS ORDERED: PROMETHAZINE HCL 25 MG TABLET PO PRN (20:04)
[2017-01-06] MEDS: CEFAZOLIN 2 GM/D5W RTU 2 GM/50 ML RTUPB IV SCH (21:23)
[2017-01-06] MEDS: OXYCODONE-ACETAMINOPHEN 5-325 MG TABLET PO PRN (22:55)
[2017-01-07 05:42] LABS: ABSOLUTE EOSINOPHILS # (AUTO) 0.4 10^3/uL (0.0-0.6); ABSOLUTE LYMPHOCYTES (AUTO) 1.2 10^3/uL (0.5-4.7); ABSOLUTE MONOCYTES (AUTO) 0.8 10^3/uL (0.1-1.4); ABSOLUTE NEUT (AUTO) 5.5 10^3/uL (1.7-8.2); BASOPHILS % (AUTO) 0.5 % (0-2); HEMATOCRIT 29.4 % (36.0-47.0); HEMOGLOBIN 10.2 g/dL (12.0-15.5); HGB HCT DIFFERENCE 1.2; LYMPHOCYTES % (AUTO) 15.3 % (13-45); MEAN CORPUSCULAR HEMOGLOBIN 30.7 pg (27.0-33.4); MEAN CORPUSCULAR HGB CONC 34.7 g/dL (32.0-36.0); MEAN CORPUSCULAR VOLUME 88 fl (80-97); MONOCYTES % (AUTO) 9.9 % (3-13); RED BLOOD COUNT 3.33 10^6/uL (3.72-5.28); SEGMENTED NEUTROPHILS % (AUTO) 69.3 % (42-78); WHITE BLOOD COUNT 7.9 10^3/uL (4.0-10.5)
[2017-01-07] MEDS: CEFAZOLIN 2 GM/D5W RTU 2 GM/50 ML RTUPB IV SCH ×3 (05:45→21:26)
[2017-01-07] MEDS: OXYCODONE-ACETAMINOPHEN 5-325 MG TABLET PO PRN ×2 (05:50→20:50)
[2017-01-07 06:02] LABS: ALANINE AMINOTRANSFERASE 31 U/L (9-52); ALKALINE PHOSPHATASE 82 U/L (38-126); AMYLASE 42 U/L (30-110); ANION GAP 8 (5-19); ASPARTATE AMINO TRANSFERASE 23 U/L (14-36); BILIRUBIN,DIRECT 0.3 mg/dL (0.0-0.4); BILIRUBIN,TOTAL 0.4 mg/dL (0.2-1.3); BLOOD UREA NITROGEN 6 mg/dL (7-20); CALCIUM 8.7 mg/dL (8.4-10.2); CARBON DIOXIDE 24 mmol/L (22-30); CHLORIDE 105 mmol/L (98-107); GLUCOSE 84 mg/dL (75-110); LIPASE 38.3 U/L (23-300); POTASSIUM 4.2 mmol/L (3.6-5.0); SODIUM 136.7 mmol/L (137-145); TOTAL PROTEIN 5.6 g/dL (6.3-8.2)
--- NOTE | 2017-01-07 11:25 | PDOC PROGRESS REPORT ---
Subjective Progress Note for:: 01/07/17 Subjective:: Feels much better after cholecystostomy tube placement. Minimal right upper quadrant abdominal discomfort. Patient states that she has had right upper quadrant abdominal pain since Wednesday and with it worsening she came in to the emergency room again. Was noted with gallstone at the neck of the gallbladder with gallbladder wall thickening consistent with cholecystitis. She has had some chills at home. No jaundice. She is 30 weeks . The on-call surgeon felt that she would be best managed in this circumstance with the cholecystostomy tube. And she has had a good response. No problems during her . She is only had C-sections for her prior surgical history. Patient is otherwise healthy. Physical Exam Vital Signs: Temp Pulse Resp BP Pulse Ox 97.6 F 89 16 118/67 99 01/07/17 07:37 01/07/17 07:37 01/07/17 07:37 01/07/17 07:37 01/07/17 07:37 Intake & Output 01/06/17 01/07/17 01/08/17 06:59 06:59 06:59 Intake Total 500 120 Output Total 200 80 Balance 300 40 General appearance: PRESENT: no acute distress, cooperative Respiratory exam: PRESENT: clear to auscultation bao Cardiovascular exam: PRESENT: RRR GI/Abdominal exam: PRESENT: other - Soft, gravid, nontender to palpation, right flank cholecystostomy drain in place. Draining out slightly turbid blood- tinged fluid. Results Laboratory Results: 01/07/17 05:20 01/07/17 05:20 01/07/17 01/07/17 05:20 05:20 WBC 7.9 RBC 3.33 L Hgb 10.2 L Hct 29.4 L MCV 88 MCH 30.7 MCHC 34.7 RDW 13.0 Plt Count 227 Seg Neutrophils % 69.3 Lymphocytes % 15.3 Monocytes % 9.9 Eosinophils % 5.0 Basophils % 0.5 Absolute Neutrophils 5.5 Absolute Lymphocytes 1.2 Absolute Monocytes 0.8 Absolute Eosinophils 0.4 Absolute Basophils 0.0 Sodium 136.7 L Potassium 4.2 Chloride 105 Carbon Dioxide 24 Anion Gap 8 BUN 6 L Creatinine 0.60 Est GFR ( Amer) > 60 Est GFR (Non-Af Amer) > 60 Glucose 84 Calcium 8.7 Total Bilirubin 0.4 AST 23 ALT 31 Alkaline Phosphatase 82 Total Protein 5.6 L Albumin 3.0 L Amylase 42 Lipase 38.3 Impressions: Percutaneous Drainage 01/06/17 00:00 IMPRESSION: CT GUIDED CHOLECYSTOSTOMY TUBE PLACEMENT PERFORMED WITHOUT IMMEDIATE COMPLICATION. Abdomen MRI 01/06/17 11:15 IMPRESSION: Normal appendix Distended gallbladder with 1 cm stone in the gallbladder neck. Findings are worrisome for acute cholecystitis Prominent fibroid along the leftward lower uterine segment, 14 x 11 cm in size. Assessment & Plan - Diagnosis (1) Cholecystitis Is this a current diagnosis for this admission?: Yes Plan: Status post cholecystostomy tube with good patient response. Keep her on IV antibiotics. Will await culture results. When the cultures results return will plan to switch over to p.o. antibiotics and get the patient home. We will need to determine how long to keep the cholecystostomy tube. Recommend keeping it in for at least the next 4 weeks to allow the tract to mature. She will need a cholecystostomy tube check prior to removal, which would entail radiation exposure. Will discuss with our radiology colleagues concerning the risks benefits of doing this radiologic procedure during third trimester . She will need a cholecystectomy after she delivers, preferably at least a month after .
--- NOTE | 2017-01-07 16:51 | PDOC PROGRESS REPORT ---
Subjective Progress Note for:: 01/07/17 Subjective:: doing well. pain is improving. tolerating drain well Physical Exam - Physical Exam Vital Signs: Temp Pulse Resp BP Pulse Ox 98.1 F 66 16 104/58 L 99 01/07/17 15:19 01/07/17 15:19 01/07/17 15:19 01/07/17 15:19 01/07/17 15:19 Intake & Output 01/06/17 01/07/17 01/08/17 06:59 06:59 06:59 Intake Total 500 120 Output Total 200 80 Balance 300 40 General appearance: PRESENT: no acute distress, cooperative Head exam: PRESENT: atraumatic - young drain in place with no s/sxs of infection. minimal drainage - Obstetrical Exam Fundal Height: u/3 - u/4 Tender: No Result Laboratory Results: 01/07/17 05:20 01/07/17 05:20 01/07/17 01/07/17 05:20 05:20 WBC 7.9 RBC 3.33 L Hgb 10.2 L Hct 29.4 L MCV 88 MCH 30.7 MCHC 34.7 RDW 13.0 Plt Count 227 Seg Neutrophils % 69.3 Lymphocytes % 15.3 Monocytes % 9.9 Eosinophils % 5.0 Basophils % 0.5 Absolute Neutrophils 5.5 Absolute Lymphocytes 1.2 Absolute Monocytes 0.8 Absolute Eosinophils 0.4 Absolute Basophils 0.0 Sodium 136.7 L Potassium 4.2 Chloride 105 Carbon Dioxide 24 Anion Gap 8 BUN 6 L Creatinine 0.60 Est GFR ( Amer) > 60 Est GFR (Non-Af Amer) > 60 Glucose 84 Calcium 8.7 Total Bilirubin 0.4 AST 23 ALT 31 Alkaline Phosphatase 82 Total Protein 5.6 L Albumin 3.0 L Amylase 42 Lipase 38.3 Impressions: Percutaneous Drainage 01/06/17 00:00 IMPRESSION: CT GUIDED CHOLECYSTOSTOMY TUBE PLACEMENT PERFORMED WITHOUT IMMEDIATE COMPLICATION. Abdomen MRI 01/06/17 11:15 IMPRESSION: Normal appendix Distended gallbladder with 1 cm stone in the gallbladder neck. Findings are worrisome for acute cholecystitis Prominent fibroid along the leftward lower uterine segment, 14 x 11 cm in size. Assessment & Plan - Plan Summary Plan Summary: will continue IV antibiotics today and tonight. plan for d/c in AM if WBC trending down and remaining stable.
[2017-01-08] MEDS: CEFAZOLIN 2 GM/D5W RTU 2 GM/50 ML RTUPB IV SCH (05:08)
[2017-01-08 06:50] LABS: HEMOGLOBIN 10.8 g/dL (12.0-15.5); HGB HCT DIFFERENCE 1.4; MEAN CORPUSCULAR HEMOGLOBIN 30.8 pg (27.0-33.4); MEAN CORPUSCULAR HGB CONC 34.9 g/dL (32.0-36.0); MEAN CORPUSCULAR VOLUME 88 fl (80-97); RED BLOOD COUNT 3.51 10^6/uL (3.72-5.28); WHITE BLOOD COUNT 6.5 10^3/uL (4.0-10.5)
[2017-01-08 06:51] LABS: ABSOLUTE EOSINOPHILS # (AUTO) 0.3 10^3/uL (0.0-0.6); ABSOLUTE LYMPHOCYTES (AUTO) 1.3 10^3/uL (0.5-4.7); ABSOLUTE MONOCYTES (AUTO) 0.6 10^3/uL (0.1-1.4); ABSOLUTE NEUT (AUTO) 4.4 10^3/uL (1.7-8.2); BASOPHILS % (AUTO) 0.5 % (0-2); EOSINOPHILS % (AUTO) 4.2 % (0-6); LYMPHOCYTES % (AUTO) 19.5 % (13-45); MONOCYTES % (AUTO) 8.9 % (3-13); RED CELL DISTRIBUTION WIDTH 13.4 % (11.5-14.0); SEGMENTED NEUTROPHILS % (AUTO) 66.9 % (42-78)
--- NOTE | 2017-01-08 10:32 | PROGRESS NOTE E ---
Progress Note NAME: JANET CORTEZ : 1975 AGE: 41Y DATE: 01/08/2017 ROOM: 209 SUBJECTIVE: This is the second day post placement of cholecystostomy tube. OBJECTIVE: She remains afebrile. White count is normal. Her right upper quadrant is without any more tenderness. There is some discomfort along the catheter site on her back. The Gram stain and preliminary culture showed no growth. PLAN: The patient is tolerating is a low-fat diet and remains afebrile. She can be discharged today and continue on p.o. Keflex 500 mg q.i.d. for the next 5 days. She needs to keep her cholecystostomy tube until the time of delivery. Her cholecystectomy can be done a week or 2 after delivery. Patient can be followed up in the Surgical Clinic in about 2 weeks to tentatively schedule her surgery. DICTATING PHYSICIAN: RAHEEM MANTILLA M.D. [id number] PHY#: [id number] ID: [id number] JOB#: [id number] ACCT: [id number] cc: >
[2017-01-08] MEDS ORDERED: DOCUSATE SODIUM 100 MG CAPSULE PO ONE (11:00)
[2017-01-08 11:39] VITALS: BP 129/71
--- NOTE | 2017-01-08 12:25 | PDOC DISCHARGE SUMMARY ---
General - Admit/Disc Date/PCP Admission Date/Primary Care Provider: 01/06/17 19:06 Discharge Date: 01/08/17 - Discharge Diagnosis (1) Cholecystitis Is this a current diagnosis for this admission?: Yes Summary: S/p drain placement. She has been taught drain care. Dr. georges saw patient and wishes for pt to be seen in 2wks then will have interval cholecystectomy after delivery. Cultures negative - recommended keflex for discharge. Will given pain meds for prn. (2) Is this a current diagnosis for this admission?: Yes Summary: Continue f/u in office at [facility]. Plan for Repeat C/S - Additional Information Home Medications: Vit 40/Iron/Folic/Dha [ Multi + Dha Softgel] 1 each PO DAILY History of Present Illness Patient complains of: biliary colic History of Present Illness: JANET CORTEZ is a 41 year old female presented from clinic to ER and MRI obtained and noted stone. Drain placed and pt with improved pain. Per Gen Surg pt meets criteria for discharge and will be discharged on po abx with f/u in office at [facility] and Gen surg. Hospital Course Hospital Course: 41 year old female presented from clinic to ER and MRI obtained and noted stone. Drain placed and pt with improved pain. Per Gen Surg pt meets criteria for discharge and will be discharged on po abx with f/u in office at [facility] and Gen surg. Physical Exam - Physical Exam Vital Signs: Temp Pulse Resp BP Pulse Ox 98.2 F 82 16 129/71 H 100 01/08/17 11:05 01/08/17 11:05 01/08/17 11:05 01/08/17 11:05 01/08/17 11:05 Intake & Output 01/07/17 01/08/17 01/09/17 06:59 06:59 06:59 Intake Total 500 1270 Output Total 200 235 40 Balance 300 1035 -40 General appearance: PRESENT: no acute distress, well-developed, well-nourished Respiratory exam: PRESENT: clear to auscultation bao, symmetrical, unlabored. ABSENT: retraction, tachypnea Cardiovascular exam: PRESENT: RRR. ABSENT: diastolic murmur, rubs, systolic murmur GI/Abdominal exam: PRESENT: normal bowel sounds, soft. ABSENT: distended, guarding, mass, organolmegaly, rebound, tenderness Rectal exam: PRESENT: deferred Extremities exam: PRESENT: full ROM. ABSENT: calf tenderness, clubbing, pedal edema Neurological exam: PRESENT: alert, awake, oriented to person, oriented to place , oriented to time, oriented to situation, CN II-XII grossly intact. ABSENT: motor sensory deficit Psychiatric exam: PRESENT: appropriate affect, normal mood. ABSENT: homicidal ideation, suicidal ideation Skin exam: PRESENT: dry, intact, warm. ABSENT: cyanosis, rash Result Laboratory Results: 01/08/17 05:50 01/07/17 05:20 01/08/17 05:50 WBC 6.5 RBC 3.51 L Hgb 10.8 L Hct 31.0 L MCV 88 MCH 30.8 MCHC 34.9 RDW 13.4 Plt Count 252 Seg Neutrophils % 66.9 Lymphocytes % 19.5 Monocytes % 8.9 Eosinophils % 4.2 Basophils % 0.5 Absolute Neutrophils 4.4 Absolute Lymphocytes 1.3 Absolute Monocytes 0.6 Absolute Eosinophils 0.3 Absolute Basophils 0.0 Impressions: Percutaneous Drainage 01/06/17 00:00 IMPRESSION: CT GUIDED CHOLECYSTOSTOMY TUBE PLACEMENT PERFORMED WITHOUT IMMEDIATE COMPLICATION. Abdomen MRI 01/06/17 11:15 IMPRESSION: Normal appendix Distended gallbladder with 1 cm stone in the gallbladder neck. Findings are worrisome for acute cholecystitis Prominent fibroid along the leftward lower uterine segment, 14 x 11 cm in size. Status: Imported from PACS Plan Discharge Plan: Discharge to home with f/u in office ([facility] and gen Surg) Time Spent: Less than 30 Minutes
--- NOTE | 2017-01-08 12:31 | PDOC PROGRESS REPORT ---
Subjective Progress Note for:: 01/08/17 Subjective:: improved pain and doing well, tolerating po intake Physical Exam - Physical Exam Vital Signs: Temp Pulse Resp BP Pulse Ox 98.2 F 82 16 129/71 H 100 01/08/17 11:05 01/08/17 11:05 01/08/17 11:05 01/08/17 11:05 01/08/17 11:05 Intake & Output 01/07/17 01/08/17 01/09/17 06:59 06:59 06:59 Intake Total 500 1270 Output Total 200 235 40 Balance 300 1035 -40 General appearance: PRESENT: no acute distress, well-developed, well-nourished Head exam: PRESENT: atraumatic, normocephalic Respiratory exam: PRESENT: clear to auscultation bao, symmetrical, unlabored Cardiovascular exam: PRESENT: RRR. ABSENT: diastolic murmur, rubs, systolic murmur Pulses: PRESENT: normal dorsalis pedis pul, +2 pedal pulses bilateral GI/Abdominal exam: PRESENT: normal bowel sounds, soft. ABSENT: distended, guarding, mass, organolmegaly, rebound, tenderness Rectal exam: PRESENT: deferred Extremities exam: PRESENT: full ROM. ABSENT: calf tenderness, clubbing, pedal edema Neurological exam: PRESENT: alert, awake, oriented to person, oriented to place , oriented to time, oriented to situation, CN II-XII grossly intact. ABSENT: motor sensory deficit Psychiatric exam: PRESENT: appropriate affect, normal mood. ABSENT: homicidal ideation, suicidal ideation Skin exam: PRESENT: dry, intact, warm. ABSENT: cyanosis, rash Result Laboratory Results: 01/08/17 05:50 01/07/17 05:20 01/08/17 05:50 WBC 6.5 RBC 3.51 L Hgb 10.8 L Hct 31.0 L MCV 88 MCH 30.8 MCHC 34.9 RDW 13.4 Plt Count 252 Seg Neutrophils % 66.9 Lymphocytes % 19.5 Monocytes % 8.9 Eosinophils % 4.2 Basophils % 0.5 Absolute Neutrophils 4.4 Absolute Lymphocytes 1.3 Absolute Monocytes 0.6 Absolute Eosinophils 0.3 Absolute Basophils 0.0 Impressions: Percutaneous Drainage 01/06/17 00:00 IMPRESSION: CT GUIDED CHOLECYSTOSTOMY TUBE PLACEMENT PERFORMED WITHOUT IMMEDIATE COMPLICATION. Abdomen MRI 01/06/17 11:15 IMPRESSION: Normal appendix Distended gallbladder with 1 cm stone in the gallbladder neck. Findings are worrisome for acute cholecystitis Prominent fibroid along the leftward lower uterine segment, 14 x 11 cm in size. Status: Imported from PACS Assessment & Plan - Diagnosis (1) Cholecystitis Is this a current diagnosis for this admission?: Yes Plan: Drain placed and patient doing better. Gen surg cleared for discharge. (2) Qualifiers: Weeks of gestation: 30 weeks Qualified Code(s): Z3A.30 - 30 weeks gestation of Is this a current diagnosis for this admission?: Yes Plan: discharge to home with f/u in [facility]
[2017-01-08] MEDS ORDERED: DOCUSATE SODIUM 100 MG CAPSULE PO SCH (18:00)
== END 2017-01-08 13:15 | disposition home or self-care (01) | DRG 775 ==
LOC: ER 11:01 → INTOOBSV 14:43 → EH 14:43 → 2N 16:26 → LR 16:29 → OBSVTOIN 19:06 → 2N 19:40
PROVIDERS: ADMIT Specialist; ATTEND Specialist
PROC: 0F9430Z Drainage of Gallbladder with Drainage Device, Percutaneous Approach (ICD-10-PCS; principal; 2017-01-06)
DX: O99.62 Diseases of the digestive system complicating childbirth (principal); Z3A.30 30 weeks gestation of pregnancy; Z88.0 Allergy status to penicillin; Z88.8 Allergy status to other drugs, medicaments and biological substances; Z88.6 Allergy status to analgesic agent
CPT/HCPCS: 36415; 59025; 74181; 75989; 80053; 81001; 82150; 83690; 85025; 87070; 87075; 87205; 96360; 99285; C1729; C1769; C1894; J0690; J2250; J3010; J7030

== ENCOUNTER → 2017-01-26 | Outpatient (CLI) | payer OTHER ==
[2017-01-26 13:36] LABS: ALANINE AMINOTRANSFERASE 34 U/L (9-52); ALBUMIN 3.6 g/dL (3.5-5.0); ALKALINE PHOSPHATASE 105 U/L (38-126); AMYLASE 57 U/L (30-110); ASPARTATE AMINO TRANSFERASE 18 U/L (14-36); BILIRUBIN,DIRECT 0.3 mg/dL (0.0-0.4); BILIRUBIN,TOTAL 0.5 mg/dL (0.2-1.3); LIPASE 83.9 U/L (23-300); TOTAL PROTEIN 6.3 g/dL (6.3-8.2)
== END ==
LOC: OD 12:31
PROVIDERS: ATTEND Surgery
DX: O99.619 Diseases of the digestive system complicating pregnancy, unspecified trimester (principal); K81.9 Cholecystitis, unspecified; Z3A.00 Weeks of gestation of pregnancy not specified
CPT/HCPCS: 36415; 80076; 82150; 83690

== ENCOUNTER → 2017-02-03 | Outpatient (CLI) | payer OTHER ==
[~2017-02-03] MED LIST: LIDOCAINE 1% INJ-PF (10 MG/ML) 30 ML SDV ONE; LIDOCAINE 2% INJ (20 MG/ML) 20 ML MDV ONE
== END ==
LOC: RAD 13:05
PROVIDERS: ATTEND Nuclear Medicine
DX: K82.8 Other specified diseases of gallbladder (principal)

== ENCOUNTER 2017-05-25 01:05 | Observation (INO) | payer OTHER ==
[2017-05-25] MEDS ORDERED: KETOROLAC TROMETHAMINE INJ/PF 30 MG/1 ML SDV IV ONE (01:52)
[2017-05-25] MEDS ORDERED: ONDANSETRON HCL INJ/PF 4 MG/2 ML SDV IV ONE ×4 (01:52→09:55)
--- NOTE | 2017-05-25 01:58 | ER Document Report ---
ED Medical Screen (RME) - General Chief Complaint: Epigastric Pain Stated Complaint: ABDOMINAL PAIN Time Seen by Provider: 05/25/17 01:48 Notes: Patient is a 41-year-old female presents emergency department complaining of sudden onset right upper quadrant pain approximately 1 hour after eating. Patient states that she had practically and cheddar soup from [place] at approximately 6 PM. After that she admits to right upper quadrant sharp pain with associated nausea and vomiting. Patient states she has had previous symptoms with this. She states that since she was last fall she did require a gallbladder drain and she was supposed to follow-up with surgery in April for an elective cholecystectomy. Patient states that she did not have time for this as a new mom. She otherwise denies any previous flares since she delivered the baby. TRAVEL OUTSIDE OF THE [place] IN LAST 30 DAYS: No - Related Data Allergies/Adverse Reactions: Penicillins Allergy (Severe, Verified 01/06/17 11:27) Hives hydromorphone HCl [From Dilaudid] Adverse Reaction (Mild, Verified 01/06/17 11: 27) nausea, sweaty and low 02 sats Opioids - Morphine Analogues Adverse Reaction (Mild, Verified 01/06/17 11:27) nausea, cold sweats, low 02 sats Past Medical History - Social History Frequency of alcohol use: None Drug Abuse: None - Past Medical History Cardiac Medical History: Pulmonary Medical History: Neurological Medical History: Reports: Hx Migraine Renal/ Medical History: Denies: Hx Kidney Stones, Hx Ovarian Cysts, Hx Peritoneal Dialysis, Hx Pelvic Inflammatory Disease Malignancy Medical History: Denies: Hx Breast Cancer, Hx Cervical Cancer, Hx Ovarian Cancer GI Medical History: Denies: Hx Gastroesophageal Reflux Disease, Hx Hiatal Hernia , Hx Ulcer Musculoskeltal Medical History: Psychiatric Medical History: Denies: Hx Depression Infectious Medical History: Denies: Hx HIV Past Surgical History: Reports: Hx Section - x2 - Immunizations Hx Diphtheria, Pertussis, Tetanus Vaccination: Yes History of Influenza Vaccine for 01/2017 - 06/2017 Season: Yes Physical Exam - Vital signs Vitals: Temp Pulse Resp BP Pulse Ox 98.0 F 63 18 162/82 H 100 05/25/17 01:12 05/25/17 01:12 05/25/17 01:12 05/25/17 01:12 05/25/17 01:12 - Notes Notes: PHYSICAL EXAM GENERAL: Alert, interacts well. LUNGS: Clear to auscultation bilaterally, no wheezes, rales, or rhonchi. No respiratory distress. HEART: Regular rate and rhythm. No murmurs, gallops, or rubs. NEUROLOGICAL: Alert and oriented x4. Normal speech. PSYCH: Normal affect, normal mood. Course - Vital Signs Vital signs: Temp Pulse Resp BP Pulse Ox 98.0 F 63 18 162/82 H 100 05/25/17 01:12 05/25/17 01:12 05/25/17 01:12 05/25/17 01:12 05/25/17 01:12
[2017-05-25 02:21] LABS: ABSOLUTE BASOPHILS # (AUTO) 0.1 10^3/uL (0.0-0.2); ABSOLUTE EOSINOPHILS # (AUTO) 0.1 10^3/uL (0.0-0.6); ABSOLUTE LYMPHOCYTES (AUTO) 1.7 10^3/uL (0.5-4.7); ABSOLUTE MONOCYTES (AUTO) 0.8 10^3/uL (0.1-1.4); ABSOLUTE NEUT (AUTO) 7.6 10^3/uL (1.7-8.2); BASOPHILS % (AUTO) 0.6 % (0-2); EOSINOPHILS % (AUTO) 1.2 % (0-6); HEMATOCRIT 39.6 % (36.0-47.0); HEMOGLOBIN 13.3 g/dL (12.0-15.5); LYMPHOCYTES % (AUTO) 16.2 % (13-45); MEAN CORPUSCULAR HEMOGLOBIN 27.3 pg (27.0-33.4); MEAN CORPUSCULAR HGB CONC 33.6 g/dL (32.0-36.0); MEAN CORPUSCULAR VOLUME 81 fl (80-97); MONOCYTES % (AUTO) 7.9 % (3-13); PLATELET COUNT 336 10^3/uL (150-450); RED BLOOD COUNT 4.87 10^6/uL (3.72-5.28); RED CELL DISTRIBUTION WIDTH 16.1 % (11.5-14.0); SEGMENTED NEUTROPHILS % (AUTO) 74.1 % (42-78); TOTAL CELLS COUNTED % (AUTO) 100 %; WHITE BLOOD COUNT 10.2 10^3/uL (4.0-10.5)
[2017-05-25 02:29] LABS: ALANINE AMINOTRANSFERASE 69 U/L (9-52); ALBUMIN 4.8 g/dL (3.5-5.0); ALKALINE PHOSPHATASE 91 U/L (38-126); ANION GAP 13 (5-19); ASPARTATE AMINO TRANSFERASE 47 U/L (14-36); BILIRUBIN,DIRECT 0.4 mg/dL (0.0-0.4); BILIRUBIN,TOTAL 0.5 mg/dL (0.2-1.3); BLOOD UREA NITROGEN 16 mg/dL (7-20); CALCIUM 10.7 mg/dL (8.4-10.2); CARBON DIOXIDE 26 mmol/L (22-30); CHLORIDE 105 mmol/L (98-107); GLUCOSE 110 mg/dL (75-110); LIPASE 125.2 U/L (23-300); POTASSIUM 4.1 mmol/L (3.6-5.0); SODIUM 143.7 mmol/L (137-145); TOTAL PROTEIN 7.8 g/dL (6.3-8.2)
[2017-05-25] MEDS ORDERED: FENTANYL CITRATE INJ/PF 100 MCG/2 ML AMPUL IV ONE ×4 (02:44→09:55)
[2017-05-25] MEDS ORDERED: NORMAL SALINE 1000 ML 1,000 ML IV ONE (02:45)
--- NOTE | 2017-05-25 02:47 | ER Document Report ---
ED GI/ - General Chief Complaint: Epigastric Pain Stated Complaint: ABDOMINAL PAIN Time Seen by Provider: 05/25/17 01:48 Notes: Patient is a 41-year-old female who comes emergency department for chief complaint of right upper quadrant pain and vomiting that started about 1 hour after eating dinner tonight. She denies fever, she denies other locations of pain. She states that she actually had a drain placed in her gallbladder because she had cholecystitis late in her last fall, she states that she was supposed to have a Sandra surgical follow-up but she has been too busy with her child and children. She denies any daily medications other than vitamins, only other medical history is . TRAVEL OUTSIDE OF THE [place] IN LAST 30 DAYS: No - Related Data Allergies/Adverse Reactions: Penicillins Allergy (Severe, Verified 01/06/17 11:27) Hives hydromorphone HCl [From Dilaudid] Adverse Reaction (Mild, Verified 01/06/17 11: 27) nausea, sweaty and low 02 sats Opioids - Morphine Analogues Adverse Reaction (Mild, Verified 01/06/17 11:27) nausea, cold sweats, low 02 sats Past Medical History - General Information source: Patient - Social History Smoking Status: Never Smoker Frequency of alcohol use: None Drug Abuse: None Lives with: Family Family History: Reviewed & Not Pertinent Patient has suicidal ideation: No Patient has homicidal ideation: No - Past Medical History Cardiac Medical History: Pulmonary Medical History: Neurological Medical History: Reports: Hx Migraine Renal/ Medical History: Denies: Hx Kidney Stones, Hx Ovarian Cysts, Hx Peritoneal Dialysis, Hx Pelvic Inflammatory Disease Malignancy Medical History: Denies: Hx Breast Cancer, Hx Cervical Cancer, Hx Ovarian Cancer GI Medical History: Denies: Hx Gastroesophageal Reflux Disease, Hx Hiatal Hernia , Hx Ulcer Musculoskeltal Medical History: Psychiatric Medical History: Denies: Hx Depression Infectious Medical History: Denies: Hx HIV Past Surgical History: Reports: Hx Section - x2 - Immunizations Hx Diphtheria, Pertussis, Tetanus Vaccination: Yes Review of Systems - Review of Systems Constitutional: No symptoms reported EENT: No symptoms reported Cardiovascular: No symptoms reported Respiratory: No symptoms reported Gastrointestinal: See HPI Genitourinary: No symptoms reported Female Genitourinary: No symptoms reported Musculoskeletal: No symptoms reported Skin: No symptoms reported Hematologic/Lymphatic: No symptoms reported Neurological/Psychological: No symptoms reported Physical Exam - Vital signs Vitals: Temp Pulse Resp BP Pulse Ox 98.0 F 63 18 162/82 H 100 05/25/17 01:12 05/25/17 01:12 05/25/17 01:12 05/25/17 01:12 05/25/17 01:12 Interpretation: Normal - General General appearance: Anxious In distress: Mild - HEENT Head: Normocephalic, Atraumatic Eyes: Normal Pupils: PERRL - Respiratory Respiratory status: No respiratory distress Chest status: Nontender Breath sounds: Normal. No: Decreased air movement, Wheezing Chest palpation: Normal - Cardiovascular Rhythm: Regular. No: Tachycardia Heart sounds: Normal auscultation, S1 appreciated, S2 appreciated Murmur: No - Abdominal Inspection: Normal Distension: No distension Bowel sounds: Normal Tenderness: Tender, Carias's sign, Guarding Organomegaly: No organomegaly - Back Back: Normal, Nontender - Extremities General upper extremity: Normal inspection, Nontender, Normal color, Normal ROM , Normal temperature General lower extremity: Normal inspection, Nontender, Normal color, Normal ROM , Normal temperature, Normal weight bearing. No: Marily's sign - Neurological Neuro grossly intact: Yes Cognition: Normal Orientation: AAOx4 Syl Coma Scale Eye Opening: Spontaneous Syl Coma Scale Verbal: Oriented Syl Coma Scale Motor: Obeys Commands Syl Coma Scale Total: 15 Speech: Normal Motor strength normal: LUE, RUE, LLE, RLE Sensory: Normal - Psychological Associated symptoms: Anxious - Skin Skin Temperature: Warm Skin Moisture: Dry Skin Color: Normal Course - Re-evaluation Re-evalutation: Patient in obvious discomfort, has guarding in the right upper quadrant, positive Carias sign. Remaining abdomen is benign. Vital signs unremarkable. CBC, chemistry unremarkable except for mild elevation of LFTs. Lipase is normal , bilirubin is normal. Ultrasound showing cholelithiasis with gallbladder wall thickening and some surrounding fluid suggesting cholecystitis. Patient having return of pain and she is still not completely comfortable. Still has tenderness on examination. She is allergic to penicillin, will be given Levaquin and Flagyl, she has been kept n.p.o., will discuss with surgeon. Discussed with surgery on-call, Dr. Plummer, he states that he will admit the patient. Patient states understanding and agreement. - Vital Signs Vital signs: Temp Pulse Resp BP Pulse Ox 98.0 F 63 18 162/82 H 100 05/25/17 01:12 05/25/17 01:12 05/25/17 01:12 05/25/17 01:12 05/25/17 01:12 - Laboratory Result Diagrams: 05/25/17 01:54 05/25/17 01:54 Laboratory results interpreted by me: 05/25/17 05/25/17 05/25/17 01:54 01:54 01:54 RDW 16.1 H Calcium 10.7 H AST 47 H ALT 69 H Urine Ketones TRACE H Discharge - Discharge Clinical Impression: RUQ abdominal pain, Cholecystitis Condition: Stable Disposition: ADMITTED OBSERVATION Admitting Provider: Surgicalist Unit Admitted: OR Referrals: LORETTA PERALTA NP [Primary Care Provider] - Follow up as needed
[2017-05-25 02:48] LABS: APPEARANCE,URINE CLEAR; BILIRUBIN,URINE NEGATIVE (NEGATIVE); COLOR,URINE YELLOW; GLUCOSE, URINE NEGATIVE (NEGATIVE); KETONES,URINE TRACE mg/dL (NEGATIVE); LEUKOCYTE ESTERASE,URINE NEGATIVE (NEGATIVE); NITRITE,URINE NEGATIVE (NEGATIVE); PROTEIN,URINE NEGATIVE (NEGATIVE); URINE SPECIFIC GRAVITY 1.024; UROBILINOGEN,URINE NEGATIVE mg/dL (<2.0)
--- NOTE | 2017-05-25 04:26 | RADIOLOGY REPORT (SQ) ---
EXAM DESCRIPTION: U/S ABDOMEN LIMITED W/O DOP CLINICAL HISTORY: 41 years, Female, RUQ pain COMPARISON: None. TECHNIQUE: Transabdominal. LIMITATIONS: Premedicated. FINDINGS: 13 cm hydropic gallbladder with discontinuous gallbladder wall thickening measuring up to 0.4 cm, minimal pericholecystic fluid, and small cholelithiasis. Sonographic Carias's test is indeterminate; no pain is demonstrated on sonographic palpation of the gallbladder postmedication. Common duct diameter 0.4 cm. No intrahepatic ductal dilation. Minimal free fluid in the hepatorenal recess. Pancreas, aorta, liver, 11 cm right kidney, and vasculature appear unremarkable. IMPRESSION: Cholelithiasis, gallbladder wall thickening, and minimal free fluid of the right upper quadrant. Sonographic Carias's test is indeterminate, postmedication. Differential diagnosis includes biliary colic and cholecystitis.
[2017-05-25] MEDS ORDERED: NORMAL SALINE 1000 ML 1,000 ML IV PRN (04:41)
[2017-05-25] MEDS ORDERED: METRONIDAZOLE 500 MG/NS RTU 100 ML IV ONE (04:41)
[2017-05-25] MEDS ORDERED: LEVOFLOXACIN 750 MG/D5W RTU 750 MG/150 ML RTUPB IV ONE ×2 (04:41→06:00)
[2017-05-25] MEDS ORDERED: DIPHENHYDRAMINE HCL 50 MG/ML VIAL IV ONE (07:06)
[2017-05-25] MEDS ORDERED: KETOROLAC TROMETHAMINE INJ/PF 30 MG/1 ML SDV ONE (14:14)
[2017-05-25] MEDS ORDERED: DEXTROSE 40% GEL 15 GM TUBE PO PRN ×2 (15:24)
[2017-05-25] MEDS ORDERED: DEXTROSE 50%-WATER 25 GM/50 ML DISP.SYRIN IV PRN ×2 (15:24)
[2017-05-25] MEDS ORDERED: ONDANSETRON HCL INJ/PF 4 MG/2 ML SDV IV PRN (15:24)
[2017-05-25] MEDS ORDERED: GLUCAGON,HUMAN RECOMB 1 MG INJ SUBCUT PRN (15:24)
[2017-05-25] MEDS: KETOROLAC TROMETHAMINE INJ/PF 30 MG/1 ML SDV IV SCH ×2 (15:59→20:06)
--- NOTE | 2017-05-25 20:51 | PDOC H&P ---
History of Present Illness Admission Date/PCP: 05/25/17 07:18 LORETTA PERALTA History of Present Illness: JANET CORTEZ is a 41 year old female patient who is admitted via the emergency department with ultrasound diagnosed acute acute cholecystitis. She had presented with complaint of right upper quadrant pain and vomiting that started about 1 hour after eating dinner last night. She denies fever or jaundice. She had a drain placed in her gallbladder for cholecystitis late in her last fall. 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 Past Medical History Cardiac Medical History: Pulmonary Medical History: Neurological Medical History: Reports: Migraine Malignancy Medical History: Denies: Breast Cancer, Cervical Cancer, Ovarian Cancer GI Medical History: Denies: Gastroesophageal Reflux Disease, Hiatal Hernia Musculoskeltal Medical History: Psychiatric Medical History: Denies: Depression Hematology: Reports: Anemia - DURING LAST PREGNANCT Denies: Hemophilia, Sickle Cell Disease Infectious Medical History: Denies: HIV Past Surgical History Past Surgical History: Reports: Section - x2 Social History Lives with: Family Smoking Status: Never Smoker Frequency of Alcohol Use: None Hx Recreational Drug Use: No Drugs: None Hx Prescription Drug Abuse: No Family History Family History: Reviewed & Not Pertinent Parental Family History Reviewed: No Children Family History Reviewed: Unknown Sibling(s) Family History Reviewed.: Unknown Medication/Allergy Home Medications: Vit/Iron Fum/Folic AC [ Tablet] 1 tab PO DAILY 05/25/17 Allergies/Adverse Reactions: Penicillins Allergy (Severe, Verified 01/06/17 11:27) Hives hydromorphone HCl [From Dilaudid] Adverse Reaction (Mild, Verified 01/06/17 11: 27) nausea, sweaty and low 02 sats Opioids - Morphine Analogues Adverse Reaction (Mild, Verified 01/06/17 11:27) nausea, cold sweats, low 02 sats Review of Systems Constitutional: ABSENT: chills, fever(s), headache(s), weight gain, weight loss Eyes: ABSENT: visual disturbances Ears: ABSENT: hearing changes Cardiovascular: ABSENT: chest pain, dyspnea on exertion, edema, orthropnea, palpitations Respiratory: ABSENT: cough, hemoptysis Gastrointestinal: PRESENT: as per HPI, abdominal pain, nausea, vomiting Genitourinary: ABSENT: dysuria, hematuria Musculoskeletal: ABSENT: joint swelling Integumentary: ABSENT: rash, wounds Neurological: ABSENT: abnormal gait, abnormal speech, confusion, dizziness, focal weakness, syncope Psychiatric: ABSENT: anxiety, depression, homidical ideation, suicidal ideation Endocrine: ABSENT: cold intolerance, heat intolerance, polydipsia, polyuria Hematologic/Lymphatic: ABSENT: easy bleeding, easy bruising Physical Exam Vital Signs: Temp Pulse Resp BP Pulse Ox 98.2 F 77 22 H 155/67 H 100 05/25/17 16:00 05/25/17 16:00 05/25/17 16:00 05/25/17 16:00 05/25/17 16:00 General appearance: PRESENT: no acute distress, well-developed, well-nourished Head exam: PRESENT: atraumatic, normocephalic Eye exam: PRESENT: conjunctiva pink, EOMI, PERRLA. ABSENT: scleral icterus Ear exam: PRESENT: normal external ear exam Neck exam: ABSENT: carotid bruit, JVD, lymphadenopathy, thyromegaly Respiratory exam: PRESENT: clear to auscultation bao. ABSENT: rales, rhonchi, wheezes Cardiovascular exam: PRESENT: RRR. ABSENT: diastolic murmur, rubs, systolic murmur GI/Abdominal exam: PRESENT: Carias's sign, normal bowel sounds, soft, tenderness. ABSENT: distended, guarding, mass, organolmegaly, rebound Musculoskeletal exam: PRESENT: ambulatory Neurological exam: PRESENT: alert, awake, oriented to person, oriented to place , oriented to time, oriented to situation, CN II-XII grossly intact. ABSENT: motor sensory deficit Psychiatric exam: PRESENT: appropriate affect, normal mood. ABSENT: homicidal ideation, suicidal ideation Results Impressions: Abdomen Ultrasound 05/25/17 01:48 IMPRESSION: Cholelithiasis, gallbladder wall thickening, and minimal free fluid of the right upper quadrant. Sonographic Carias's test is indeterminate, postmedication. Differential diagnosis includes biliary colic and cholecystitis. Assessment & Plan - Diagnosis (1) Acute calculous cholecystitis Is this a current diagnosis for this admission?: Yes - Plan Summary Plan Summary: Admitted clears for now NPO past midnight For laparoscopic cholecystectomy possible open in AM. Analgesia DVT prophylaxis Antibiotics
[2017-05-26] MEDS: KETOROLAC TROMETHAMINE INJ/PF 30 MG/1 ML SDV IV SCH ×3 (02:01→16:25)
[2017-05-26] MEDS ORDERED: LIDOCAINE 1% INJ-PF (10 MG/ML) 30 ML SDV ONE (09:42)
[2017-05-26] MEDS ORDERED: PRENATAL VITAMIN W DHA CAPSULE PO SCH (10:00)
[2017-05-26] MEDS ORDERED: ENOXAPARIN SODIUM INJ 40 MG/0.4 ML DISP.SYRIN SUBCUT SCH (10:00)
[2017-05-26] MEDS ORDERED: CEFAZOLIN INJ 1 GM VIAL ONE (10:36)
[2017-05-26] MEDS ORDERED: MIDAZOLAM 2 MG/2 ML INJ ONE (10:45)
[2017-05-26] MEDS ORDERED: PROPOFOL INJ 200 MG/20 ML VIAL IV ONE (10:46)
[2017-05-26] MEDS ORDERED: FENTANYL CITRATE INJ/PF 250 MCG/5 ML AMPULE ONE (10:46)
[2017-05-26] MEDS ORDERED: ACETAMINOPHEN 100 ML IV ONE (10:46)
[2017-05-26] MEDS ORDERED: LEVOFLOXACIN 750 MG/D5W RTU 750 MG/150 ML RTUPB IV ONE (11:10)
[2017-05-26] MEDS ORDERED: FENTANYL CITRATE INJ/PF 100 MCG/2 ML AMPUL IV PRN ×3 (11:14)
[2017-05-26] MEDS ORDERED: MORPHINE SULFATE 10 MG/ML INJ IV PRN (11:14)
[2017-05-26] MEDS ORDERED: PROMETHAZINE HCL INJ 25 MG/1 ML VIAL IV PRN ×2 (11:14)
[2017-05-26] MEDS ORDERED: OXYCODONE-ACETAMINOPHEN 5-325 MG TABLET PO PRN ×2 (11:14)
[2017-05-26] MEDS ORDERED: MEPERIDINE HCL/PF INJ 25 MG/1 ML DISP.SYRIN IV PRN (11:14)
[2017-05-26] MEDS ORDERED: DIPHENHYDRAMINE HCL 50 MG/ML VIAL IV PRN (11:14)
[2017-05-26] MEDS ORDERED: SUCCINYLCHOLINE CHLORIDE INJ 200 MG/10 ML VIAL ONE (11:28)
[2017-05-26] MEDS ORDERED: ONDANSETRON HCL INJ/PF 4 MG/2 ML SDV ONE (11:28)
[2017-05-26] MEDS ORDERED: GLYCOPYRROLATE INJ 0.4 MG/2 ML VIAL ONE (11:28)
[2017-05-26] MEDS ORDERED: DEXAMETHASONE SOD PHOSPHATE INJ 4 MG/1 ML VIAL ONE (11:28)
[2017-05-26] MEDS ORDERED: LIDOCAINE 2% INJ-PF (20 MG/ML) 2 ML AMPUL ONE (11:28)
[2017-05-26] MEDS ORDERED: NEOSTIGMINE METHYLSULFATE 10 MG/10 ML VIAL ONE (11:28)
[2017-05-26] MEDS ORDERED: ROCURONIUM BROMIDE INJ 50 MG/5 ML VIAL IV ONE (11:28)
[2017-05-26] MEDS: BUPIVACAINE HCL 0.25 % INJ/PF (2.5 MG/1 ML) 30 ML VIAL ONE ×2 (11:56→11:58)
[2017-05-26] MEDS ORDERED: PROMETHAZINE HCL INJ 25 MG/1 ML VIAL ONE (13:34)
--- NOTE | 2017-05-26 13:47 | PDOC PROGRESS REPORT ---
Subjective Progress Note for:: 05/26/17 Subjective:: No new issues Patient is scheduled for surgery today Reason For Visit: ACUTE CHOLECYSTITIS Physical Exam Vital Signs: Temp Pulse Resp BP Pulse Ox 98.2 F 74 16 125/61 96 05/26/17 04:15 05/26/17 04:15 05/26/17 04:15 05/26/17 04:15 05/26/17 04:15 Intake & Output 05/25/17 05/26/17 05/27/17 06:59 06:59 06:59 Intake Total 400 1000 Output Total 1000 Balance 400 0 Weight 107.4 kg General appearance: PRESENT: no acute distress Eye exam: PRESENT: conjunctiva pink Respiratory exam: PRESENT: clear to auscultation bao. ABSENT: rales, rhonchi, wheezes Cardiovascular exam: PRESENT: RRR. ABSENT: diastolic murmur, rubs, systolic murmur GI/Abdominal exam: PRESENT: normal bowel sounds, soft. ABSENT: distended, guarding, mass, organolmegaly, rebound, tenderness Neurological exam: PRESENT: alert, awake, oriented to person, oriented to place , oriented to time, oriented to situation, CN II-XII grossly intact. ABSENT: motor sensory deficit Results Impressions: Abdomen Ultrasound 05/25/17 01:48 IMPRESSION: Cholelithiasis, gallbladder wall thickening, and minimal free fluid of the right upper quadrant. Sonographic Carias's test is indeterminate, postmedication. Differential diagnosis includes biliary colic and cholecystitis. Assessment & Plan - Diagnosis (1) Acute calculous cholecystitis Is this a current diagnosis for this admission?: Yes - Plan Summary Plan Summary: For surgery today
--- NOTE | 2017-05-26 14:01 | Operative Report ---
Operative Report PREOPERATIVE DIAGNOSIS: Acute Cholecystitis POSTOPERATIVE DIAGNOSIS: Acute Cholecystitis OPERATION: Laparoscopic Cholecystectomy SURGEON: Desiree Plummer ANESTHESIA: GA TISSUE REMOVED OR ALTERED: gallbladder COMPLICATIONS: none ESTIMATED BLOOD LOSS: 100ml INTRAOPERATIVE FINDINGS: 1. Flimsy and slightly dense adhesions of omentum to the gallbladder. 2. Distended gallbladder containing greenish bile. 3. Thickened, edematous and erythematous gallbladder wall. 4. Slightly bile- stained free fluid in the right subhepatic space PROCEDURE: The patient was brought to the operating room and placed on the operating table. General endotracheal anesthesia was administered and she was positioned supine. The abdomen was prepped with chloraprep and sterile drapes laid. A time out was done. Under sterile aseptic conditions, access to the peritoneal cavity was gained using the open Virginie technique with a 10mm at the umbilicus. Pneumoperitoneum was insufflated to 15 mmHg. Three additional ports were placed. A 10mm subxiphoid port and two 5mm right subcostal ports, one in the midclavicular line, the other in the anterior axillary line. The patient was positioned in reverse trendelenberg with the right side up. Adhesions of omentum to the gallbladder taken down bluntly with the suction and also using the ligasure. The gallbladder was aspirated of 60 ml of greenish bile and then grasped at the fundus with a grasper passed through the lateral right subcostal port and . The cristina's pouch was then grasped with a grasper passed through the medial right subcostal. The peritoneum at the junction between the cristina' s pouch and the cystic duct was taken down with the maryland dissector. The peritoneal rent was then taken across the medial and lateral surfaces of the calot's triangle. The Calot's triangle was dissected, dissecting out the cystic duct and artery. A critical view of safety was observed as shown in the accompanying pictures. The duct was doubly clipped toward the patient's side and singly clipped toward the gallbladder and transected between the clips. The artery was ligated with the Ligasure bipolar device. The gallbladder was dissected from the liver bed using the hook laparoscopic electrosurgical unit. There was significant inflammation and so some bleeding from the liver bed. The specimen was retrieved from the peritoneal cavity in an endobag and sent off the field. A spilled stone was retrieved and sent with the specimen. Hemostasis of the liver bed was secured using the hook laparoscopic electrosurgery device as well as Floseal. The right subdiaphragmatic and subhepatic areas were irrigated with saline. Final inspection did not reveal any bleed or bile leak. The pneumoperitoneum was desufflated, all the ports were removed. The subxiphoid port fascial layer was closed with o-vicryl simple continuous stitches and the umbilical port fascial layer closed with 0-vicryl figure of eight stitch. All the skin incisions were closed with 4-0 monocryl subcuticular stitches. The incisions were infiltrates with local anesthesia, a 1:1 mixture of 1% lidociane and 0.25% marcaine, a total of 20ml; they were cleaned and dressed with dermabond. The patient tolerated the procedure well, she was extubated in the operating room and taken to the PACU in stable consition.
--- NOTE | 2017-05-26 17:05 | PDOC DISCHARGE SUMMARY ---
General - Admit/Disc Date/PCP Admission Date/Primary Care Provider: 05/25/17 07:18 LORETTA PERALTA Discharge Date: 05/26/17 - Discharge Diagnosis (1) Acute calculous cholecystitis Is this a current diagnosis for this admission?: Yes - Additional Information Resuscitation Status: Full Code Discharge Diet: As Tolerated, Regular Discharge Activity: No Lifting Over 10 Pounds, No Lifting/Push/Pulling, No tub bath Prescriptions: Docusate Sodium [Colace 100 mg Capsule] 100 mg PO BID #30 capsule Levofloxacin 500 mg PO DAILY #10 tablet Ondansetron [Ondansetron Odt] 4 mg PO Q6HP PRN #12 tab.rapdis PRN Reason: For Nausea/Vomiting Oxycodone HCl/Acetaminophen [Percocet 5-325 mg Tablet] 1 tab PO ASDIR PRN #40 tab PRN Reason: Home Medications: Vit/Iron Fum/Folic AC [ Tablet] 1 tab PO DAILY 05/25/17 Docusate Sodium [Colace 100 mg Capsule] 100 mg PO BID #30 capsule 05/26/17 Levofloxacin 500 mg PO DAILY #10 tablet 05/26/17 Ondansetron [Ondansetron Odt] 4 mg PO Q6HP PRN #12 tab.rapdis 05/26/17 Oxycodone HCl/Acetaminophen [Percocet 5-325 mg Tablet] 1 tab PO ASDIR PRN #40 tab 05/26/17 History of Present Illness History of Present Illness: JANET CORTEZ is a 41 year old female patient who is admitted via the emergency department with ultrasound diagnosed acute acute cholecystitis. She had presented with complaint of right upper quadrant pain and vomiting that started about 1 hour after eating dinner last night. She denies fever or jaundice. She had a drain placed in her gallbladder for cholecystitis late in her last fall. 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 Hospital Course Hospital Course: The patient had laparoscopic cholecystectomy today. She is doing well, tolerating a diet, ambulant and is discharged home today. Physical Exam Vital Signs: Temp Pulse Resp BP Pulse Ox 98.2 F 58 L 18 159/74 H 99 05/26/17 15:22 05/26/17 15:22 05/26/17 15:22 05/26/17 15:22 05/26/17 15:22 Intake & Output 05/25/17 05/26/17 05/27/17 06:59 06:59 06:59 Intake Total 400 2600 Output Total 1050 Balance 400 1550 Weight 107.4 kg General appearance: PRESENT: no acute distress, well-developed, well-nourished Head exam: PRESENT: atraumatic, normocephalic Neck exam: ABSENT: carotid bruit, JVD, lymphadenopathy, thyromegaly Respiratory exam: PRESENT: clear to auscultation bao. ABSENT: rales, rhonchi, wheezes Cardiovascular exam: PRESENT: RRR. ABSENT: diastolic murmur, rubs, systolic murmur GI/Abdominal exam: PRESENT: normal bowel sounds, soft, other - incisions are clean ,dry, intact. ABSENT: distended, guarding, mass, organolmegaly, rebound, tenderness Neurological exam: PRESENT: alert, awake, oriented to person, oriented to place , oriented to time, oriented to situation, CN II-XII grossly intact. ABSENT: motor sensory deficit Psychiatric exam: PRESENT: appropriate affect, normal mood. ABSENT: homicidal ideation, suicidal ideation Results Impressions: Abdomen Ultrasound 05/25/17 01:48 IMPRESSION: Cholelithiasis, gallbladder wall thickening, and minimal free fluid of the right upper quadrant. Sonographic Carias's test is indeterminate, postmedication. Differential diagnosis includes biliary colic and cholecystitis. Plan Discharge Plan: discharge home today levaquin 500mg po x 10 days F/u [facility] week. Time Spent: Less than 30 Minutes
[2017-05-26 19:17] VITALS: BP 133/63
[2017-05-27] MEDS ORDERED: (PENDING PHARMACY ID) (Prenatal Vit/Iron Fum/Folic Ac [Prenatal Tablet] 1 TAB) PO SCH (10:00)
== END 2017-05-26 19:30 | disposition home or self-care (01) ==
LOC: ER 01:05 → EH 07:18 → 2S 13:25 → 2N 05-26 12:42
PROVIDERS: ADMIT Surgery; ATTEND Surgery
PROC: 0FT44ZZ Resection of Gallbladder, Percutaneous Endoscopic Approach (ICD-10-PCS; principal; 2017-05-25)
DX: K80.00 Calculus of gallbladder with acute cholecystitis without obstruction (principal)
CPT/HCPCS: 96376; 99285; 96361; 96375; 96365; 96367; 36415; 87205; 87070; 83690; 85025; 81025; 87075; 87077; 80053; 81001; 87186; 88304 ×2; 76705; 47562; G0378 ×2; J2250; J3490 ×3; J1100; J1200; J3010 ×2; J1885 ×2; J2550; J0330; J2405 ×2; J7030; J2704; J1956 ×2; J0131; 790; J0690

== ENCOUNTER 2018-11-05 20:58 | Emergency (ER) | payer OTHER ==
[2018-11-05] MEDS ORDERED: ONDANSETRON HCL INJ/PF 4 MG/2 ML SDV IV ONE (21:49)
[2018-11-05] MEDS ORDERED: NORMAL SALINE 1000 ML 1,000 ML IV ONE (21:49)
--- NOTE | 2018-11-05 22:02 | ER Document Report ---
ED General - General Chief Complaint: Nausea/Vomiting/Diarrhea Stated Complaint: ABDOMINAL PAIN Time Seen by Provider: 11/05/18 21:49 Primary Care Provider: LORETTA PERALTA NP [NURSE PRACTITIONER] - Follow up as needed TRAVEL OUTSIDE OF THE [place] IN LAST 30 DAYS: No - HPI Notes: Patient is a 42-year-old female that presents to the emergency department for chief complaint of abdominal pain and diarrhea. Patient states she woke up this morning feeling nauseated. She then had d evelopment of diffuse abdominal cramping which is now localized more in her suprapubic and right lower quadrant. She states she has had 4-5 episodes of loose diarrhea. She denies any blood in her stool. She reports nausea with no vomiting. She denies fevers and chills. Patient states she feels like something is "wrong". She has had cholecystectomy, 4 C-sections, and a tubal ligation in the past. Patient denies taking any medicine at home for her symptoms. She reports decreased appetite stating she feels nauseated when eating. Past Medical History: Negative Past Surgical History: Cholecystectomy, x4, tubal ligation Social History: Denies drugs alcohol and tobacco Family History: Reviewed and noncontributory for presenting illness Allergies: Reviewed, see documented allergy list. REVIEW OF SYSTEMS: CONSTITUTIONAL : No fever No chills No diaphoresis No recent illness EENT: No vision changes No congestion No sore throat CARDIOVASCULAR: No chest pain No palpitations RESPIRATORY: No shortness of breath No cough No difficulty breathing GASTROINTESTINAL: abdominal pain nausea No vomiting diarrhea GENITOURINARY: No dysuria No hematuria No difficulty urinating MUSCULOSKELETAL: No back pain No leg pain No arm pain SKIN: No rashes No lesions LYMPHATIC: No swollen, enlarged glands. NEUROLOGICAL: No lightheadedness No headache No weakness No paresthesias PSYCHIATRIC: No anxiety No depression PHYSICAL EXAMINATION: Vital signs reviewed, nursing noted reviewed. GENERAL: Well-appearing, well-nourished and in no acute distress. HEAD: Atraumatic, normocephalic. EYES: Eyes appear normal, extraocular movements intact, sclera anicteric, conjunctiva are normal. ENT: nares patent, oropharynx clear without exudates. Mildly dry mucous membranes. NECK: Normal range of motion, supple without lymphadenopathy LUNGS: Breath sounds clear to auscultation bilaterally and equal. No wheezes rales or rhonchi. HEART: Regular rate and rhythm without murmurs ABDOMEN: Soft, right lower quadrant and suprapubic tenderness to palpation and to a lesser extent left lower quadrant tenderness. No rebound, guarding, or rigidity. No masses appreciated. Positive McBurney's point tenderness, no pain with heel strike. EXTREMITIES: Nontender, good range of motion, no pitting or edema. NEUROLOGICAL: No focal neurological deficits. Moves all extremities spontaneously Motor and sensory grossly intact on exam. PSYCH: Normal mood, normal affect. SKIN: Warm, Dry, normal turgor, no rashes or lesions noted on exposed skin - Related Data Allergies/Adverse Reactions: Penicillins Allergy (Severe, Verified 01/06/17 11:27) Hives hydromorphone HCl [From Dilaudid] Adverse Reaction (Mild, Verified 01/06/17 11:27) nausea, sweaty and low 02 sats Opioids - Morphine Analogues Adverse Reaction (Mild, Verified 01/06/17 11:27) nausea, cold sweats, low 02 sats Past Medical History - Social History Smoking Status: Never Smoker Family History: Reviewed & Not Pertinent - Past Medical History Cardiac Medical History: Pulmonary Medical History: Neurological Medical History: Reports: Hx Migraine Renal/ Medical History: Denies: Hx Kidney Stones, Hx Ovarian Cysts, Hx Peritoneal Dialysis, Hx Pelvic Inflammatory Disease Malignancy Medical History: Denies: Hx Breast Cancer, Hx Cervical Cancer, Hx Ovarian Cancer GI Medical History: Denies: Hx Gastroesophageal Reflux Disease, Hx Hiatal Hernia, Hx Ulcer Musculoskeletal Medical History: Psychiatric Medical History: Denies: Hx Depression Infectious Medical History: Denies: Hx HIV Past Surgical History: Reports: Hx Section - x2 - Immunizations Hx Diphtheria, Pertussis, Tetanus Vaccination: Yes Physical Exam - Vital signs Vitals: Temp Pulse Resp BP Pulse Ox 98.8 F 101 H 18 130/80 H 98 11/05/18 21:03 11/05/18 21:03 11/05/18 21:03 11/05/18 21:03 11/05/18 21:03 Course - Re-evaluation Re-evalutation: 11/05/18 22:02 Vitals reviewed. Nursing notes reviewed. Patient is mildly tachycardic with dry mucous membranes consistent with dehydration from poor oral intake and diarrhea today. She was given IV fluids and Zofran for symptomatic management. She is otherwise alert and nontoxic in appearance. She does have tenderness in her right lower quadrant concerning for possible appendicitis. CT scan has been ordered. 11/06/18 01:05 Patient reevaluated and states she is feeling better. Her pain has improved. Her abdominal exam is mixer tender across her lower abdomen but it is improved from presentation. CT scan shows a normal appearing appendix. She does have a uterine fibroid which is known to her. She states that they were hoping it would shrink after her pregnancies but she will follow with [facility] for follow-up on that fibroid. Patient's blood work shows no severe dehydration or renal insufficiency. She does not have a leukocytosis to suggest underlying infection. Patient counseled on increasing her oral hydration. She will be given a prescription for Zofran to help with her nausea. She will follow with her PCP for reevaluation. She will return for new or worsening symptoms. She is stable at discharge. Laboratory 11/05/18 11/05/18 11/05/18 22:48 22:48 22:48 WBC 9.6 RBC 5.00 Hgb 14.9 Hct 42.3 MCV 85 MCH 29.9 MCHC 35.4 RDW 13.0 Plt Count 282 Seg Neutrophils % 84.6 H Lymphocytes % 7.5 L Monocytes % 7.1 Eosinophils % 0.3 Basophils % 0.5 Absolute Neutrophils 8.1 Absolute Lymphocytes 0.7 Absolute Monocytes 0.7 Absolute Eosinophils 0.0 Absolute Basophils 0.0 Sodium 138.3 Potassium 3.8 Chloride 100 Carbon Dioxide 25 Anion Gap 13 BUN 11 Creatinine 0.77 Est GFR ( Amer) > 60 Est GFR (Non-Af Amer) > 60 Glucose 87 Calcium 9.4 Total Bilirubin 0.8 Direct Bilirubin 0.2 Neonat Total Bilirubin Not Reportable Neonat Direct Bilirubin Not Reportable Neonat Indirect Bili Not Reportable AST 34 ALT 38 Alkaline Phosphatase 92 Total Protein 8.0 Albumin 4.9 Lipase 70.9 Urine Color YELLOW Urine Appearance CLEAR Urine pH 6.0 Ur Specific [place] 1.016 Urine Protein NEGATIVE Urine Glucose (UA) NEGATIVE Urine Ketones 20 H Urine Blood SMALL H Urine Nitrite NEGATIVE Urine Bilirubin NEGATIVE Urine Urobilinogen NEGATIVE Ur Leukocyte Esterase NEGATIVE Urine WBC (Auto) 0 Urine RBC (Auto) 2 Squamous Epi Cells Auto 4 Urine Mucus (Auto) RARE Urine Ascorbic Acid NEGATIVE Abdomen/Pelvis CT 11/05/18 21:56 IMPRESSION: 1. Again demonstrated is a large, solid, slightly heterogeneous 11.4 x 8.8 x 11.6 cm soft tissue mass in the left hemipelvis displacing the uterus to the right of midline. This was present on the previous MRI of the abdomen performed on 01/06/2017. This may represent a large exophytic uterine fibroid. 2. Small ventral abdominal wall hernia containing fat and a knuckle of nondilated colon. 3. Slightly decreased attenuation of the liver commonly seen with fatty infiltration. 4. Remote cholecystectomy. - Vital Signs Vital signs: Temp Pulse Resp BP Pulse Ox 98.8 F 101 H 18 130/80 H 98 11/05/18 21:03 11/05/18 21:03 11/05/18 21:03 11/05/18 21:03 11/05/18 21:03 - Laboratory Result Diagrams: 11/05/18 22:48 11/05/18 22:48 Laboratory results interpreted by me: 11/05/18 11/05/18 22:48 22:48 Seg Neutrophils % 84.6 H Lymphocytes % 7.5 L Urine Ketones 20 H Urine Blood SMALL H Discharge - Discharge Clinical Impression: Diarrhea Qualifiers: Diarrhea type: unspecified type Qualified Code(s): R19.7 - Diarrhea, unspecified Abdominal pain Qualifiers: Abdominal location: lower abdomen, unspecified Qualified Code(s): R10.30 - Lower abdominal pain, unspecified Uterine fibroid Qualifiers: Uterine leiomyoma location: unspecified location Qualified Code(s): D25.9 - Leiomyoma of uterus, unspecified Condition: Stable Disposition: HOME, SELF-CARE Instructions: Diarrhea, Nonspecific ([facility]) Additional Instructions: Please return to the emergency department if you have any worsening, or concern of your symptoms. Please return to the emergency department if you develop chest pain, difficulty breathing, severe abdominal pain, or ongoing vomiting. Please follow-up with your primary care physician in 2-3 days and any other recommended physicians. If prescribed, take all medications as directed. If you have any questions or concerns do not hesitate to return the emergency department for evaluation. Contact your [facility] for follow-up on your uterine fibroid Be sure to increase the amount of water you are drinking well having diarrhea to prevent dehydration Prescriptions: Ondansetron [Zofran Odt 4 mg Tablet] 1 tab PO Q4H PRN #[id number] tab.rapdis PRN Reason: For Nausea/Vomiting Referrals: [facility] [Provider Group] - Follow up in 3-5 days
[2018-11-05 23:04] LABS: ABSOLUTE LYMPHOCYTES (AUTO) 0.7 10^3/uL (0.5-4.7); ABSOLUTE MONOCYTES (AUTO) 0.7 10^3/uL (0.1-1.4); ABSOLUTE NEUT (AUTO) 8.1 10^3/uL (1.7-8.2); BASOPHILS % (AUTO) 0.5 % (0-2); EOSINOPHILS % (AUTO) 0.3 % (0-6); HEMATOCRIT 42.3 % (36.0-47.0); HEMOGLOBIN 14.9 g/dL (12.0-15.5); LYMPHOCYTES % (AUTO) 7.5 % (13-45); MEAN CORPUSCULAR HEMOGLOBIN 29.9 pg (27.0-33.4); MEAN CORPUSCULAR HGB CONC 35.4 g/dL (32.0-36.0); MEAN CORPUSCULAR VOLUME 85 fl (80-97); MONOCYTES % (AUTO) 7.1 % (3-13); PLATELET COUNT 282 10^3/uL (150-450); SEGMENTED NEUTROPHILS % (AUTO) 84.6 % (42-78); TOTAL CELLS COUNTED % (AUTO) 100 %; WHITE BLOOD COUNT 9.6 10^3/uL (4.0-10.5)
[2018-11-05 23:20] LABS: APPEARANCE,URINE CLEAR; BILIRUBIN,URINE NEGATIVE (NEGATIVE); COLOR,URINE YELLOW; GLUCOSE, URINE NEGATIVE (NEGATIVE); KETONES,URINE 20 mg/dL (NEGATIVE); LEUKOCYTE ESTERASE,URINE NEGATIVE (NEGATIVE); NITRITE,URINE NEGATIVE (NEGATIVE); PROTEIN,URINE NEGATIVE (NEGATIVE); URINE SPECIFIC GRAVITY 1.016; UROBILINOGEN,URINE NEGATIVE mg/dL (<2.0)
[2018-11-05 23:24] LABS: ALANINE AMINOTRANSFERASE 38 U/L (9-52); ALBUMIN 4.9 g/dL (3.5-5.0); ALKALINE PHOSPHATASE 92 U/L (38-126); ANION GAP 13 (5-19); ASPARTATE AMINO TRANSFERASE 34 U/L (14-36); BILIRUBIN,DIRECT 0.2 mg/dL (0.0-0.4); BILIRUBIN,TOTAL 0.8 mg/dL (0.2-1.3); BLOOD UREA NITROGEN 11 mg/dL (7-20); CALCIUM 9.4 mg/dL (8.4-10.2); CARBON DIOXIDE 25 mmol/L (22-30); CHLORIDE 100 mmol/L (98-107); GLUCOSE 87 mg/dL (75-110); POTASSIUM 3.8 mmol/L (3.6-5.0)
--- NOTE | 2018-11-06 00:53 | RADIOLOGY REPORT (SQ) ---
EXAM: CT abdomen and pelvis with IV contrast CLINICAL DATA: 42-year-old female with lower abdominal pain TECHNICAL DATA: Axial CT imaging of the abdomen and pelvis was performed following the administration of intravenous contrast.. Sagittal and coronal reconstructed images were then performed. The CT study is performed according to ALARA (as low as reasonably achievable) or ALARA/IMAGE GENTLY, with automatic adjustment of mA and/or kV according to patient size. Performed on: 11/06/2018 at 12:09 AM. Comparison: MR abdomen performed on 01/06/2017 and limited abdominal ultrasound performed on 05/25/2017. FINDINGS: Lung bases: The lung bases are clear. Liver:The liver is normal in size and configuration. No focal hepatic abnormalities are identified. There is decreased attenuation of the liver commonly due to fatty infiltration. Spleen:The spleen is normal is size, configuration and attenuation. Gallbladder and bile duct: The gallbladder is surgically absent. There is no biliary ductal dilatation. Pancreas: The pancreas is grossly normal in size and configuration. Adrenal Glands:The adrenal glands are normal in size and configuration. Kidneys:The kidneys are normal in size and configuration. There is no evidence of hydronephrosis. There is no evidence of nephrolithiasis. No definite solid or cystic renal mass lesions are identified. Stomach:The stomach is grossly normal. There is no hiatal hernia. Bowel:The bowel gas pattern is non specific and non obstructive. There is occasional colonic diverticulosis in the region of the splenic flexure. Appendix: The appendix is normal. Free air:There is no evidence of free air. Free fluid: There is no evidence of free fluid. Vasculature: The aorta is normal in caliber and contour. The inferior vena cava is grossly unremarkable. Lymphadenopathy: No pathologic lymphadenopathy is identified. Bladder: The bladder is well distended and smooth in contour. Reproductive: The uterus is displaced to the right of midline by a large solid slightly heterogeneous soft tissue mass measuring approximately 11.4 x 8.8 x 11.6 cm. This was present on the prior MRI study performed on 01/06/2017. This may represent a large exophytic uterine fibroid. Bones: No acute osseous abnormalities are identified. Soft tissues: There is a small ventral abdominal wall hernia containing fat and a knuckle of nondilated colon. IMPRESSION: 1. Again demonstrated is a large, solid, slightly heterogeneous 11.4 x 8.8 x 11.6 cm soft tissue mass in the left hemipelvis displacing the uterus to the right of midline. This was present on the previous MRI of the abdomen performed on 01/06/2017. This may represent a large exophytic uterine fibroid. 2. Small ventral abdominal wall hernia containing fat and a knuckle of nondilated colon. 3. Slightly decreased attenuation of the liver commonly seen with fatty infiltration. 4. Remote cholecystectomy.
[2018-11-06 02:26] VITALS: BP 133/94
== END 2018-11-06 02:22 | disposition home or self-care (01) ==
LOC: ER 20:58
DX: D25.9 Leiomyoma of uterus, unspecified (principal); R10.30 Lower abdominal pain, unspecified; R11.2 Nausea with vomiting, unspecified; R19.7 Diarrhea, unspecified; R10.9 Unspecified abdominal pain
CPT/HCPCS: 99284; 96361; 96374; 36415; 83690; 85025; 80053; 81001; 74177; J2405; J7030